=== PATIENT | female | born 1960 | race Caucasian/White ===

== ENCOUNTER 2021-09-21 06:51 | Emergency (ER) | payer OTHER, SELFPAY ==
--- NOTE | 2021-09-21 06:56 | ECG_ITS ---
[facility] Test Date: 2021-09-21 Pat Name: Naida Dallas Department: Room: Gender: Female Med Admin: : 1960 Requested By: Rakesh Clayton Order Number: [id number] Cristina MD: Zoltan Turcios M.D. Measurements Intervals Lambert Rate: 91 P: 67 NH: 168 QRS: 8 QRSD: 89 T: 72 QT: 360 QTc: 445 Interpretive Statements SINUS RHYTHM WITH SINUS ARRHYTHMIA POSSIBLE LEFT ATRIAL ENLARGEMENT [-0.1mV P-WAVE IN V1/V2] No previous ECG available for comparison Electronically Signed On 09-21-2021 22:33:46 CDT by Zoltan Turcios M.D. [id number]
--- NOTE | 2021-09-21 06:56 | ED_ITS ---
HPI - Abdominal Pain General: Chief Complaint: Abdominal Pain Stated Complaint: abdomen pain Time Seen by Provider: 09/21/21 06:52 Source: patient Mode of arrival: ambulatory Limitations: other (Intoxication) History of Present Illness: 61-year-old female who is acutely intoxicated. Patient admits to drinking alcohol almost continuously. She has been drinking for the last several days. She is a chronic alcoholic she is complaining of abdominal pain. She has difficulty swallowing states she is only been able to drink liquids the last couple of months. In the nurses note it states that the son reported she had a history of esophageal varices. When I talked to him and try to confirm this he was unaware what they were and states she is never had any episodes of upper GI bleeding or vomiting any bright red blood. She has had multiple esophageal strictures and food impactions and her last one was in around October 2019 at [place] she believes it was at [facility] where they pushed a food bolus of chicken meat into the stomach and did a dilation. Patient is obviously clinically significantly intoxicated she has emotional outbursts and severely labile moods. Patient admits to being intoxicated she denies any hematemesis or coffee-ground emesis in talking to her it does not sound like she has ever had any upper GI bleed or esophageal varices. She is not aware that she has any alcoholic liver cirrhosis. Family and the patient confirms she will drink a little bit more than a 1.75 L bottle in 2 days. MD elicited complaint: abdominal pain Pertinent past history: other (Alcoholism) Onset (ago): day(s) Location: Epigastric Severity: mild Quality: cramping Radiation: none Exacerbating factors: nothing Relieving factors: nothing Associated Symptoms: Reports bloating, GI cramping, nausea and poor appetite; Denies anorexia, belching, change in bowel habits, change in stool character, chills, coffee ground emesis, constipation, diarrhea, dyspepsia, dysuria, excessive flatus, fever(s), heartburn, hematochezia, hematuria, hematemesis, fecal incontinence, loose stools, melena, syncope and vomiting Review of Systems Const: Denies: fever(s) or chills ENMT: Denies: throat pain, ear or mastoid pain, nasal discharge or nasal congestion Card: Denies: chest pain, palpitations, irregular heart rhythm, edema or syncope Resp: Denies: dyspnea, productive cough or non-productive cough GI: Reports: abdominal pain, nausea, dysphagia, bloating and GI cramping; Denies: vomiting, hematemesis, coffee ground emesis, heartburn, diarrhea, constipation, belching, excessive flatus, fecal incontinence, change in bowel habits, change in stool character, hematochezia or melena : Denies: dysuria or hematuria Skin/Breast: Denies: rash or pruritus PFSH ED PFSH: Medical History Alcoholism Esophageal stricture GERD (gastroesophageal reflux disease) Surgical History History of cholecystectomy S/P appendectomy Physical Exam Const: GENERAL APPEARANCE: disheveled and appears older than stated age NUTRITIONAL APPEARANCE: cachectic ORIENTATION/CONSCIOUSNESS: Yes awake, Yes oriented to person, Yes oriented to place and Yes oriented to time HENMT: COMMON NORMALS: normocephalic, atraumatic, hearing grossly normal bilaterally, external ears normal, EAC's normal, TM's normal bilaterally, Normal nasal mucous membranes and turbinates present, moist oral mucous membranes and oropharynx normal HEAD & SCALP: normocephalic and atraumatic NOSE: Normal nasal mucous membranes and turbinates present EXTERNAL EAR: Yes external ears normal EXTERNAL AUDITORY CANAL: EAC's normal TYMPANIC MEMBRANE: TM's normal bilaterally Eye: COMMON NORMALS: Equal, round and reactive pupils present, EOMs intact bilaterally, conjunctivae normal and no scleral icterus CONJUNCTIVA: Yes conjunctivae normal PUPIL: Yes Equal, round and reactive pupils present Neck/C-Spine: COMMON NORMALS: no JVD Resp: COMMON NORMALS: normal respiratory effort, No retractions, No use of accessory muscles and clear to auscultation bilaterally AUSCULTATION: clear t o auscultation bilaterally Cardio: COMMON NORMALS: no JVD, regular rate, regular rhythm and No murmurs present (Cardio) RATE: regular rate RHYTHM: regular rhythm GI: COMMON NORMALS: Soft to palpation and No hepatosplenomegaly present AUSCULTATION: Yes normoactive bowel sounds PALPATION: Yes Soft to palpation, No Tenderness to palpation present (GI), No Guarding due to palpation present (GI) and Yes No hepatosplenomegaly present Extremity: COMMON NORMALS: normal to inspection, capillary refill normal, no clubbing, cyanosis or edema, no calf tenderness and no pedal edema Neuro: SENSORIUM/ORIENTATION: Yes oriented to person, Yes oriented to place and Yes oriented to time Skin: COMMON NORMALS: no rashes or lesions noted GENERAL SKIN EXAM: no rashes or lesions noted Course Vital Signs: Vital signs: Vital Signs Temperature 97.8 F 09/21/21 06:57 Pulse Rate 96 09/21/21 10:05 Respiratory Rate 16 09/21/21 10:05 Blood Pressure 103/58 09/21/21 10:05 Pulse Oximetry 96 09/21/21 10:05 MDM - Abdominal Pain Medical Decision Making No occlusion esophagus records from previous EGD make no mention of esophageal varices. Organ to go ahead and discharge patient home set up for outpatient EGD strongly encourage her to stop drinking. Medical Records I reviewed the patient's medical records. Lab Data I reviewed the patient's lab results. : 09/21/21 07:27 09/21/21 07:27 Labs/Radiology: Laboratory Results WBC 5.2 10^3/uL (4.0-10.0) 09/21/21 07:27 RBC 3.88 10^6/uL (4.1-5.3) L 09/21/21 07:27 Hgb 14.1 g/dL (11.5-15.3) 09/21/21 07:27 Hct 40.0 % (37.0-47.0) 09/21/21 07:27 MCV 103.1 fl (81-99) H 09/21/21 07:27 MCH 36.3 pg (28.0-34.0) H 09/21/21 07:27 MCHC 35.3 g/dL (30.0-36.0) 09/21/21 07:27 RDW 13.5 % (12.1-15.1) 09/21/21 07:27 Plt Count 131 10^3/cmm (130-400) 09/21/21 07:27 MPV 12.2 fL (7.4-10.4) H 09/21/21 07:27 Neut % (Auto) 52.5 % 09/21/21 07:27 Lymph % (Auto) 34.6 % 09/21/21 07:27 [place] % (Auto) 11.1 % 09/21/21 07:27 Eos % (Auto) 0.6 % 09/21/21 07:27 Baso % (Auto) 1.0 % 09/21/21 07:27 Neut # (Auto) 2.75 10^3/uL (1.8-7.7) 09/21/21 07:27 Lymph # (Auto) 1.8 10^3/uL (0.8-4.8) 09/21/21 07:27 [place] # (Auto) 0.6 10^3/uL (0.2-0.9) 09/21/21 07:27 Eos # (Auto) 0.0 10^3/uL (0.0-0.8) 09/21/21 07: Baso # (Auto) 0.1 10^3/uL (0.0-0.1) 09/21/21 07:27 Nucleated RBC % (auto) 0 % 09/21/21 07: Nucleated RBCs # 0.0 /100WBC 09/21/21 07:27 PT 13.90 SECONDS (12.1-14.9) 09/21/21 08:01 INR 1.04 (0.8-1.2) 09/21/21 08:01 APTT 28.7 SECONDS (23.9-36.7) 09/21/21 08:01 Sodium 141 mmol/L (136-145) 09/21/21 07:27 Potassium 3.6 mmol/L (3.5-5.1) 09/21/21 07:27 Chloride 97 mmol/L (98-107) L 09/21/21 07:27 Carbon Dioxide 24 mmol/L (22-29) 09/21/21 07:27 Anion Gap 23.6 (5-19) H 09/21/21 07:27 BUN 7 mg/dL (8-23) L 09/21/21 07:27 Creatinine 0.4 mg/dL (0.5-0.9) L 09/21/21 07:27 GFR Calculation 162.3 mL/min (90-130) H 09/21/21 07:27 Glucose 82 mg/dL (65-115) 09/21/21 07:27 Calculated Osmolality 289 mOsm/kg (285-295) 09/21/21 07:27 Calcium 9.4 mg/dL (8.5-10.5) 09/21/21 07:27 Total Bilirubin 0.9 mg/dL (0.15-1.2) 09/21/21 07:27 AST 428 U/L (0-32) H 09/21/21 07:27 ALT 185 U/L (0-33) H 09/21/21 07:27 Alkaline Phosphatase 158 IU/L (35-105) H 09/21/21 07:27 Ammonia 20 umol/L (11-51) 09/21/21 07:27 Total Protein 8.4 g/dL (6.6-8.7) 09/21/21 07:27 Albumin 4.8 g/dL (3.5-5.2) 09/21/21 07:27 Globulin 3.6 g/dL (1.3-4.6) 09/21/21 07:27 Lipase 24 U/L (13-60) 09/21/21 07:27 Urine Color Dark yellow (Yellow) 09/21/21 07:12 Urine Appearance Clear (CLEAR) 09/21/21 07:12 Urine pH 5 (5-7) 09/21/21 07:12 Ur Specific Show Low 1.015 (1.005-1.030) 09/21/21 07:12 Urine Protein 1+ (Negative) H 09/21/21 07:12 Urine Glucose (UA) Norm (Normal) 09/21/21 07:12 Urine Ketones 2+ (Negative) H 09/21/21 07:12 Urine Blood Neg (Negative) 09/21/21 07:12 Urine Nitrate Negative (Negative) 09/21/21 07:12 Urine Bilirubin Neg (Negative) 09/21/21 07:12 Urine Urobilinogen 8 mg/dL (Negative) H 09/21/21 07:12 Ur Leukocyte Esterase Trace (Negative) H 09/21/21 07:12 Urine RBC 0-4 /hpf (0-2) H 09/21/21 07:12 Urine WBC 0-4 /hpf (0-5) H 09/21/21 07:12 Ur Squamous Epith Cells 10-15 /hpf (0-5) H 09/21/21 07:12 Amorphous Sediment Not Reportable 09/21/21 07:12 Urine Bacteria 1+ /hpf (NONE) H 09/21/21 07:12 Hyaline Casts 0-4 /lpf H 09/21/21 07:12 Urine Mucus 2+ /hpf 09/21/21 07:12 Urine Opiates Screen Negative ng/mL (Negative) 09/21/21 07:12 Ur Barbiturates Screen Negative ng/mL (Negative) 09/21/21 07:12 Ur Phencyclidine Scrn Negative ng/mL (Negative) 09/21/21 07:12 Ur Amphetamines Screen Negative ng/mL (Negative) 09/21/21 07:12 U Benzodiazepines Scrn Negative ng/mL (Negative) 09/21/21 07:12 Urine Cocaine Screen Negative ng/mL (Negative) 09/21/21 07:12 U Marijuana (THC) Screen Negative ng/mL (Negative) 09/21/21 07:12 Ethyl Alcohol 271 mg/dL (0-10) H 09/21/21 07:27 Discharge Plan Discharge Patient Disposition: Home Clinical Impression: Dysphagia, Acute alcohol intoxication, Chronic gastroesophageal reflux disease Condition: Stable Prescriptions: New Protonix 40 mg tablet,delayed release (DR/EC) 40 mg PO DAILY 28 Days Qty: 30 0RF Discharge Orders: Discharge ED (Routine); Ordered 09/21/21 Ordered By: Rakesh Dumont Referrals: Reza Montana DO [Physician] - (EGD possible dilation) Discharge Diet: Full LIquid Discharge Activity: Increase activity as tolerated Patient Instructions: Opioid Safety Activity Restrictions/Additional Instructions: Abstain from alcohol. Coding Level of Care Code ED Merchandising Director for [employer] Fwd Exam Comprehensive
[2021-09-21 06:57] VITALS: BP 147/93; PULSE 162; RESP 22; TEMP 36.6; O2SAT 99; BMI 17.4
[2021-09-21 07:05] VITALS: BP 147/93; PULSE 116; RESP 18; O2SAT 98
[2021-09-21] MEDS: ondansetron 2 mg/ML SDV 2 mL 4 MG IVP ×2 (07:35→10:04)
[2021-09-21] MEDS: sodium chloride 0.9% 1,000 ML 999 ML IV (07:35)
[2021-09-21 07:42] LABS: Basophils # 0.1 10^3/uL (0.0-0.1); Eosinophils % 0.6 %; Hemoglobin 14.1 g/dL (11.5-15.3); Lymphocytes # 1.8 10^3/uL (0.8-4.8); Lymphocytes % 34.6 %; Mean Corpuscular HGB Conc 35.3 g/dL (30.0-36.0); Mean Corpuscular Hemoglobin 36.3 pg (28.0-34.0); Mean Corpuscular Volume 103.1 fl (81-99); Mean Platelet Volume 12.2 fL (7.4-10.4); Monocytes # 0.6 10^3/uL (0.2-0.9); Monocytes % 11.1 %; Neutrophils # 2.75 10^3/uL (1.8-7.7); Neutrophils % 52.5 %; Nucleated Red Blood Cells % 0 %; Platelet Count 131 10^3/cmm (130-400); Red Blood Count 3.88 10^6/uL (4.1-5.3); Red Cell Distribution Width 13.5 % (12.1-15.1); White Blood Count 5.2 10^3/uL (4.0-10.0)
[2021-09-21 07:50] VITALS: BP 124/84; PULSE 108; RESP 17; O2SAT 100
[2021-09-21 07:59] LABS: Amphetamines Screen Urine Negative (Negative); Barbiturates Screen Urine Negative (Negative); Benzodiazepines Screen Urine Negative (Negative); Cocaine Screen Urine Negative (Negative); Opiate Screen Urine Negative (Negative); PCP Screen Urine Negative (Negative); THC Screen Urine Negative (Negative)
[2021-09-21 08:03] LABS: Ammonia 20 umol/L (11-51)
[2021-09-21 08:04] LABS: Alanine Aminotransferase 185 U/L (0-33); Albumin Level 4.8 g/dL (3.5-5.2); Alcohol Level 271 mg/dL (0-10); Alkaline Phosphatase 158 IU/L (35-105); Anion Gap 23.6 (5-19); Blood Urea Nitrogen 7 mg/dL (8-23); Calcium 9.4 mg/dL (8.5-10.5); Carbon Dioxide 24 mmol/L (22-29); Chloride 97 mmol/L (98-107); Globulin 3.6 g/dL (1.3-4.6); Glomerular Filtration Rate 162.3 mL/min (90-130); Glucose 82 mg/dL (65-115); Lipase 24 U/L (13-60); Osmolality Calculated 289 mOsm/kg (285-295); Potassium 3.6 mmol/L (3.5-5.1); Sodium 141 mmol/L (136-145); Total Bilirubin 0.9 mg/dL (0.15-1.2); Total Protein 8.4 g/dL (6.6-8.7)
[2021-09-21 08:05] LABS: Aspartate Amino Transferase 428 U/L (0-32)
[2021-09-21 08:07] LABS: Specific Gravity, Urine 1.015 (1.005-1.030); Urine Appearance Clear (CLEAR); Urine Color Dark Yellow (Yellow); pH Urine 5 (5-7)
[2021-09-21 08:08] LABS: Add Urine Microscopic? YES; Bacteria Urine 1+ /hpf; Bilirubin Urine Neg (Negative); Blood Urine Neg (Negative); Glucose Urine UA Norm (Normal); Hyaline Casts Urine 0-4 /lpf; Ketones Urine 2+ (Negative); Leukocyte Esterase Urine Trace (Negative); Mucus Urine 2+ /hpf; Nitrate Urine Negative (Negative); Protein Urine 1+ (Negative); RBC Urine 0-4 /hpf (0-2); Urobilinogen Urine 8 mg/dL (Negative); WBC Urine 0-4 /hpf (0-5)
[2021-09-21 08:17] LABS: INR 1.04 (0.8-1.2)
[2021-09-21 08:18] LABS: Partial Thromboplastin Time 28.7 SECONDS (23.9-36.7)
[2021-09-21] MEDS: pantoprazole 40 mg SDV 80 MG IVP (10:04)
[2021-09-21] MEDS: LORazepam 2 mg/mL INJ 1 mL 1 MG IVP (10:04)
[2021-09-21 10:05] VITALS: BP 103/58; PULSE 96; RESP 16; O2SAT 96
== END 2021-09-21 10:11 | disposition home or self-care (01) ==
PROVIDERS: Emergency Provider Family Medicine; PCP Physician Assistant
DX: F10.229 Alcohol dependence with intoxication, unspecified (principal); Y90.8 Blood alcohol level of 240 mg/100 ml or more; K21.9 Gastro-esophageal reflux disease without esophagitis; R13.10 Dysphagia, unspecified; R11.0 Nausea
CPT/HCPCS: 80053; 80306; 80307; 81001; 82140; 83690; 85025; 85610; 85730; 93005; 96361; 96374; 96375; 96376; 99284; C9113; J2060; J2405; J7030

== ENCOUNTER 2021-10-02 02:24 | Inpatient (IN) | payer OTHER, SELFPAY ==
[2021-10-02 02:36] VITALS: BP 114/73; PULSE 114; RESP 18; TEMP 36.3; O2SAT 98; BMI 17.4
--- NOTE | 2021-10-02 03:04 | ED.C_ITS ---
HPI - Psych General: Chief Complaint: Psychiatric Symptoms Stated Complaint: Si Time Seen by Provider: 10/02/21 02:27 Source: patient and family Mode of arrival: ambulatory Limitations: no limitations History of Present Illness: 61-year-old female has a history of chronic alcoholism who is here for suicidality. Patient states that she cannot stop drinking and she is no longer feels like living anymore. She has made statements to her that she has been to get a gun and shoot herself and shoot him. She tells me that she just no longer has any will to live anymore. She denies any worsening improving factors. Associated symptoms: Reports depression and suicidal ideation Review of Systems Const: Denies: fever(s), chills, body aches or change in appetite Eyes: Denies: blurry vision or eye discomfort ENMT: Denies: throat pain or dental pain Card: Denies: chest pain Resp: Denies: dyspnea GI: Denies: abdominal pain, nausea, vomiting or diarrhea : Denies: dysuria Musc: Denies: neck pain or back pain Skin/Breast: Denies: rash Neuro: Denies: headache(s) Psych: Reports: depression and suicidal ideation Juanito/Lymph: Denies: easy bruising All/Imm: Denies: urticaria PFSH ED PFSH: Medical History Alcoholism Esophageal stricture GERD (gastroesophageal reflux disease) Surgical History History of cholecystectomy S/P appendectomy Social History (Updated 10/02/21 @ 03:05 by Eric Parker MD) Alcohol intake: current Physical Exam Const: COMMON NORMALS: patient oriented x3 GENERAL APPEARANCE: odor of alcohol detected HENMT: COMMON NORMALS: normocephalic and atraumatic HEAD & SCALP: normocep halic and atraumatic Eye: COMMON NORMALS: conjunctivae normal CONJUNCTIVA: Yes conjunctivae normal Neck/C-Spine: COMMON NORMALS: full ROM Chest: COMMONS NORMALS: normal inspection of the chest Resp: COMMON NORMALS: normal respiratory effort Cardio: COMMON NORMALS: regular rate RATE: regular rate GI: INSPECTION: Yes normal to inspection Extremity: COMMON NORMALS: normal to inspection Neuro: COMMON NORMALS: patient oriented x3 Psych: COMMON NORMALS: mental status grossly normal MOOD & AFFECT: Yes depressed mood THOUGHT CONTENT: Yes Suicidality present and Yes Homicidality present Skin: COMMON NORMALS: no rashes or lesions noted GENERAL SKIN EXAM: no rashes or lesions noted Course Vital Signs: Vital signs: Vital Signs Temperature 97.3 F L 10/02/21 02:36 Pulse Rate 114 H 10/02/21 02:36 Respiratory Rate 18 10/02/21 02:36 Blood Pressure 114/73 10/02/21 02:36 Pulse Oximetry 98 10/02/21 02:36 MDM - Psych Medical Decision Making Patient presents with suicidality along with alcoholism. Patient's medically cleared given a band and back down in the ER. Spoke to psychiatrist and will admit under 96-hour hold. Lab Data : 10/02/21 03:07 10/02/21 03:07 Laboratory Results WBC 7.0 10^3/uL (4.0-10.0) 10/02/21 03:07 RBC 3.48 10^6/uL (4.1-5.3) L 10/02/21 03:07 Hgb 12.4 g/dL (11.5-15.3) 10/02/21 03:07 Hct 35.1 % (37.0-47.0) L 10/02/21 03:07 MCV 100.9 fl (81-99) H 10/02/21 03:07 MCH 35.6 pg (28.0-34.0) H 10/02/21 03:07 MCHC 35.3 g/dL (30.0-36.0) 10/02/21 03:07 RDW 13.1 % (12.1-15.1) 10/02/21 03:07 Plt Count 102 10^3/cmm (130-400) L 10/02/21 03:07 MPV 11.8 fL (7.4-10.4) H 10/02/21 03:07 Neut % (Auto) 81.1 % 10/02/21 03:07 Lymph % (Auto) 10.1 % 10/02/21 03:07 [place] % (Auto) 7.8 % 10/02/21 03:07 Eos % (Auto) 0.0 % 10/02/21 03:07 Baso % (Auto) 0.9 % 10/02/21 03:07 Neut # (Auto) 5.64 10^3/uL (1.8-7.7) 10/02/21 03:07 Lymph # (Auto) 0.7 10^3/uL (0.8-4.8) L 10/02/21 03:07 [place] # (Auto) 0.5 10^3/uL (0.2-0.9) 10/02/21 03:07 Eos # (Auto) 0.0 10^3/uL (0.0-0.8) 10/02/21 03:07 Baso # (Auto) 0.1 10^3/uL (0.0-0.1) 10/02/21 03:07 Nucleated RBC % (auto) 0 % 10/02/21 03:07 Nucleated RBCs # 0.0 /100WBC 10/02/21 03:07 Sodium 137 mmol/L (136-145) 10/02/21 03:07 Potassium 3.4 mmol/L (3.5-5.1) L 10/02/21 03:07 Chloride 93 mmol/L (98-107) L 10/02/21 03:07 Carbon Dioxide 21 mmol/L (22-29) L 10/02/21 03:07 Anion Gap 26.4 (5-19) H 10/02/21 03:07 BUN 7 mg/dL (8-23) L 10/02/21 03:07 Creatinine 0.4 mg/dL (0.5-0.9) L 10/02/21 03:07 GFR Calculation 162.3 mL/min (90-130) H 10/02/21 03:07 Glucose 87 mg/dL (65-115) 10/02/21 03:07 Calculated Osmolality 281 mOsm/kg (285-295) L 10/02/21 03:07 Calcium 8.9 mg/dL (8.5-10.5) 10/02/21 03:07 Total Bilirubin 1.3 mg/dL (0.15-1.2) H 10/02/21 03:07 AST 188 U/L (0-32) H 10/02/21 03:07 ALT 71 U/L (0-33) H 10/02/21 03:07 Alkaline Phosphatase 170 IU/L (35-105) H 10/02/21 03:07 Total Protein 7.4 g/dL (6.6-8.7) 10/02/21 03:07 Albumin 4.5 g/dL (3.5-5.2) 10/02/21 03:07 Globulin 2.9 g/dL (1.3-4.6) 10/02/21 03:07 Lipase 40 U/L (13-60) 10/02/21 03:07 Salicylates < 0.3 mg/dL (3-10) L 10/02/21 03:07 Urine Opiates Screen Negative ng/mL (Negative) 10/02/21 03:00 Acetaminophen < 5.0 ug/mL (10-30) L 10/02/21 03:07 Ur Barbiturates Screen Negative ng/mL (Negative) 10/02/21 03:00 Ur Phencyclidine Scrn Negative ng/mL (Negative) 10/02/21 03:00 Ur Amphetamines Screen Negative ng/mL (Negative) 10/02/21 03:00 U Benzodiazepines Scrn Negative ng/mL (Negative) 10/02/21 03:00 Urine Cocaine Screen Negative ng/mL (Negative) 10/02/21 03:00 U Marijuana (THC) Screen Negative ng/mL (Negative) 10/02/21 03:00 Ethyl Alcohol 129 mg/dL (0-10) H 10/02/21 03:07 Discharge Plan Discharge Patient Disposition: Admitted As Inpatient Clinical Impression: Suicidal ideation, Alcoholism Prescriptions: No Action Protonix 40 mg tablet,delayed release (DR/EC) 40 mg PO DAILY 28 Days Qty: 30 0RF Referrals: Helene Moncada PA [Primary Care Provider] - Coding Level of Care Code ED Wrestling Coach for [facility] Fwd Exam Comprehensive
[2021-10-02 03:23] LABS: Basophils # 0.1 10^3/uL (0.0-0.1); Basophils % 0.9 %; Hematocrit 35.1 % (37.0-47.0); Hemoglobin 12.4 g/dL (11.5-15.3); Lymphocytes # 0.7 10^3/uL (0.8-4.8); Lymphocytes % 10.1 %; Mean Corpuscular HGB Conc 35.3 g/dL (30.0-36.0); Mean Corpuscular Hemoglobin 35.6 pg (28.0-34.0); Mean Corpuscular Volume 100.9 fl (81-99); Mean Platelet Volume 11.8 fL (7.4-10.4); Monocytes # 0.5 10^3/uL (0.2-0.9); Monocytes % 7.8 %; Neutrophils # 5.64 10^3/uL (1.8-7.7); Neutrophils % 81.1 %; Nucleated Red Blood Cells % 0 %; Platelet Count 102 10^3/cmm (130-400); Red Blood Count 3.48 10^6/uL (4.1-5.3); Red Cell Distribution Width 13.1 % (12.1-15.1)
[2021-10-02 03:34] LABS: Amphetamines Screen Urine Negative (Negative); Barbiturates Screen Urine Negative (Negative); Benzodiazepines Screen Urine Negative (Negative); Cocaine Screen Urine Negative (Negative); Opiate Screen Urine Negative (Negative); PCP Screen Urine Negative (Negative); THC Screen Urine Negative (Negative)
[2021-10-02 03:42] LABS: Alanine Aminotransferase 71 U/L (0-33); Albumin Level 4.5 g/dL (3.5-5.2); Alcohol Level 129 mg/dL (0-10); Alkaline Phosphatase 170 IU/L (35-105); Anion Gap 26.4 (5-19); Aspartate Amino Transferase 188 U/L (0-32); Blood Urea Nitrogen 7 mg/dL (8-23); Calcium 8.9 mg/dL (8.5-10.5); Carbon Dioxide 21 mmol/L (22-29); Chloride 93 mmol/L (98-107); Globulin 2.9 g/dL (1.3-4.6); Glomerular Filtration Rate 162.3 mL/min (90-130); Glucose 87 mg/dL (65-115); Lipase 40 U/L (13-60); Osmolality Calculated 281 mOsm/kg (285-295); Potassium 3.4 mmol/L (3.5-5.1); Sodium 137 mmol/L (136-145); Total Bilirubin 1.3 mg/dL (0.15-1.2); Total Protein 7.4 g/dL (6.6-8.7)
[2021-10-02 03:43] LABS: Acetaminophen < 5.0 ug/mL (10-30); Salicylate < 0.3 mg/dL (3-10)
[2021-10-02] MEDS: ondansetron 2 mg/ML SDV 2 mL 4 MG IVP (04:12)
[2021-10-02] MEDS: morphine 4 mg/mL SDV 1 mL IVP (04:12)
[2021-10-02] MEDS: folic acid 1 MG, multivitamin inj 10 ML, thiamine 100 MG in sodium chloride 0.9% 1,000 ML 252.8 MG IV (04:25)
[2021-10-02 07:04] VITALS: BP 111/60; PULSE 91; RESP 18; O2SAT 99
--- NOTE | 2021-10-02 07:17 | PC.PHAR ---
pt states she takes no rx medications-ext med history shows no medications-rx written on 09/21/21 for protonix 40mg daily pt states she didnt fill rx-pt states its hard for her to swallow pills
[2021-10-02 09:02] VITALS: BP 115/77; PULSE 89; RESP 20; TEMP 36.8; O2SAT 97
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
[2021-10-02] MEDS: OLANZapine 5 mg ODT 2.5 MG PO ×2 (12:15→18:18)
[2021-10-02 14:00] VITALS: BP 110/66; PULSE 82; RESP 20; TEMP 36.8; O2SAT 99
[2021-10-02] MEDS: lactulose oral liq 20 gm/30 mL UDC PO (15:17)
[2021-10-02 20:30] VITALS: BP 122/65; PULSE 73; RESP 18; TEMP 36.9; O2SAT 100
[2021-10-03 06:00] VITALS: BP 107/70; PULSE 78; RESP 18; TEMP 36.8; O2SAT 99
[2021-10-03] MEDS: OLANZapine 5 mg ODT 2.5 MG PO ×2 (09:58→18:11)
[2021-10-03] MEDS: folic acid 1 mg Tablet PO (09:58)
[2021-10-03] MEDS: multivitamin therapeutic Tablet 1 TAB PO (09:58)
[2021-10-03] MEDS: thiamine 100 mg Tablet PO (09:58)
[2021-10-03 14:00] VITALS: BP 109/70; PULSE 74; RESP 16; TEMP 36.4; O2SAT 99
--- NOTE | 2021-10-03 15:48 | P.NPUPN_ITS ---
Subjective NPU Subjective: Patient presents today feeling fairly elaborate stories about her is some of their not [place] fights. She denies any need for her to be in the hospital other than maybe exploring a repeat esophageal expansion. Very much downplaying the role of alcohol in her situation though she was intoxicated in both her recent presentations to [facility]. We we will continue to explore collateral information but that concerns are significant that the biggest thing necessary is her identifying and facing the role of addiction in her circumstances. She reports that statements about her making suicidal and or homicidal statements were taken clearly out of context. Mental Status Exam MSE Comments: This is an underweight white female looking older than her stated age in hospital scrubs with adequate grooming and eye contact. No abnormal movements. Cooperative with exam in no acute distress. Speech was normal rate and volume. Mood described as I am fine, affect congruent. Thought p rocess organized, thought content: patient denies suicidal or homicidal ideation, there were no delusions reported or noted, she denied any auditory or visual hallucinations. Attention and concentration were intact and memory appeared reliable but none were formally tested. She?s alert and oriented times three. Insight and judgment appeared fair and impulse control appeared fair Vitals/I&O/Wt Last Vital Signs Temp 97.6 F 10/03/21 14:00 Pulse 74 10/03/21 14:00 Resp 16 10/03/21 14:00 BP 109/70 10/03/21 14:00 Pulse Ox 99 10/03/21 14:00 Weight last 48 hrs Weight 43.091 kg Data NPU : 10/02/21 03:07 10/02/21 03:07 A&P Assessment and plan (1) Major depressive disorder: Status: Acute (2) Alcoholism: Status: Acute (3) Anxiety: Status: Acute (4) Marital/partner relational problem: Status: Acute (5) Suicidal ideation: Status: Acute (6) GERD (gastroesophageal reflux disease): Status: Acute Plan This is a 61-year-old lady with alcoholism and severe esophageal stricture who has given up on living. Plan: 1.? [facility] protocol for alcohol withdrawal using IM Ativan.? Zyprexa Zydis 2.5 mg twice a day to try to stimulate her appetite. 2.? Continue every 15 minute checks for safety. 3.? Encourage individual, group and milieu therapies. 4.? Encourage sober living treatment after discharge at the highest level of care to which she is willing to commit. 5.? We will monitor for safety for herself in the community prior to discharge. Involuntary Hold Information 96 Hour Hold: 96 Hour Involuntary Admission: Yes 96 Hour Hold Ending Date: 10/08/21 96 Hour Hold Ending Time: 08:39 Attestations NPU Medical Necessity Statement*: Inpatient hospitalization is medically necessary and the clinically appropriate intervention at this time.? We will initiate medications and make changes as indicated.? Likely length of stay 3-5 days Coding Level of Care Code Acute Health Care Sanitary Technician for Chg Fwd Diagnoses Major depressive disorder F32.9 Alcoholism F10.20 Anxiety F41.9 Marital/partner relational problem Z63.0 Suicidal ideation R45.851 GERD (gastroesophageal reflux disease) K21.9
[2021-10-03 21:15] VITALS: BP 114/70; PULSE 96; RESP 16; TEMP 36.8; O2SAT 97
[2021-10-03] MEDS: trazodone 50 mg Tablet PO (22:18)
--- NOTE | 2021-10-03 22:18 | PC.NURSE ---
PT REQUESTED MEDICATION TO HELP HER SLEEP. TRAZADONE WAS GIVEN.
[2021-10-04 06:00] VITALS: BP 103/69; PULSE 98; RESP 16; TEMP 36.6; O2SAT 99
[2021-10-04] MEDS: OLANZapine 5 mg ODT 2.5 MG PO ×2 (08:04→17:13)
[2021-10-04 14:00] VITALS: BP 111/77; PULSE 101; RESP 17; TEMP 36.7; O2SAT 97
--- NOTE | 2021-10-04 16:00 | P.NPUPN_ITS ---
Subjective NPU Subjective: Patient presents today continuing to report that she feels are the reason why she is here is related to misunderstanding with her . He presented today and she reports that it was a reasonable visit that he knows how to act around people. She continues to have limited intake and we d iscussed getting a consult with the hospitalist to look at the issue surrounding her esophageal constriction and previous stretches. She was informed that I will take place in the morning. We will work with treatment team and to explore safe discharge. Mental Status Exam MSE Comments: This is an underweight white female looking older than her stated age in hospital scrubs with adequate grooming and eye contact. No abnormal movements.? Cooperative with exam in no acute distress. Speech was n ormal rate and volume. Mood described as I am not sure whether supposed to be here or not but I am feeling a little better affect congruent. Thought process organized, thought content: patient denies suicidal or homicidal ideation, there were no delusions reported or noted, she denied any auditory or visual hallucinations. Attention and concentration were intact and memory appeared reliable but none were formally tested. She?s alert and oriented times three. Insight and judgment appeared fair and impulse control appeared fair Vitals/I&O/Wt Last Vital Signs Temp 98.0 F 10/04/21 14:00 Pulse 101 H 10/04/21 14:00 Resp 17 10/04/21 14:00 BP 111/77 10/04/21 14:00 Pulse Ox 97 10/04/21 14:00 Data NPU : 10/02/21 03:07 10/02/21 03:07 A&P Assessment and plan (1) Major depressive disorder: Status: Acute (2) Anxiety: Status: Acute (3) Marital/partner relational problem: Status: Acute (4) Suicidal ideation: Status: Acute (5) GERD (gastroesophageal reflux disease): Status: Acute (6) Alcohol use disorder, severe, dependence: Status: Acute Plan This is a 61-year-old lady with alcoholism and severe esophageal stricture who has given up on living. Plan: 1.? [place] protocol for alcohol withdrawal using IM Ativan.? Zyprexa Zydis 2.5 mg twice a day to try to stimulate her appetite. 2.? Continue every 15 minute checks for safety. 3.? Encourage individual, group and milieu therapies. 4.? Encourage sober living treatment after discharge at the highest level of care to which she is willing to commit. 5.? We will monitor for safety for herself in the community prior to discharge. Involuntary Hold Information 96 Hour Hold: 96 Hour Involuntary Admission: Yes 96 Hour Hold Ending Date: 10/08/21 96 Hour Hold Ending Time: 08:39 Attestations NPU Medical Necessity Statement*: Inpatient hospitalization is medically necessary and the clinically appropriate intervention at this time.? We will initiate medications and make changes as indicated.?? Likely length of stay 2-4 days Coding Level of Care Code Acute Dragline Engineer for Chg Fwd Diagnoses Major depressive disorder F32.9 Anxiety F41.9 Marital/partner relational problem Z63.0 Suicidal ideation R45.851 GERD (gastroesophageal reflux disease) K21.9 Alcohol use disorder, severe, dependence F10.20
[2021-10-04 20:42] VITALS: BP 113/71; PULSE 95; RESP 17; TEMP 36.6; O2SAT 100
--- NOTE | 2021-10-04 21:02 | PC.NURSE ---
PRN PT REQUESTED SOMETHING FOR ANXIETY. HYDROXYZINE WAS GIVEN. PT RETURNED TO DAY ROOM WITH PEERS
[2021-10-04] MEDS: trazodone 50 mg Tablet PO (21:31)
[2021-10-05 06:00] VITALS: BP 110/68; PULSE 100; RESP 17; TEMP 36.8; O2SAT 98
[2021-10-05] MEDS: OLANZapine 5 mg ODT 2.5 MG PO ×2 (08:29→16:28)
[2021-10-05] MEDS: folic acid 1 mg Tablet PO (08:29)
[2021-10-05] MEDS: thiamine 100 mg Tablet PO (08:29)
[2021-10-05] MEDS: multivitamin therapeutic Tablet 1 TAB PO (08:29)
--- NOTE | 2021-10-05 10:16 | FL_ITS ---
WS: [id number] Barium swallow and esophagram, 10/05/2021 Clinical Data: esophageal stricture, vomiting. Comparison: None. Fluoroscopy time: 0min [id number] # of spot films: 5 Findings: The patient swallowed the thick and thin barium, and it flowed through the hypopharynx without hesita tion. No stricture, mass, polyp or erosion was seen in the hypopharynx. The barium entered the esophagus. The barium passed to the distal esophagus by gravity without normal peristalsis. There was a stricture at the gastroesophageal junction. Only a small amount of barium p assed into the stomach even though the patient was in the erect position. FL/FL barium swallow [id number] Impression: 1. Probable benign stricture at the gastroesophageal junction permitting only m inimal flow of barium into the stomach. 2. Absent peristalsis of the esophagus.
--- NOTE | 2021-10-05 13:17 | PC.NURSE ---
RETURNED FROM BARIUM SWALLOW TEST. TOLERATED WELL. BACK ON UNIT AT 1316.
[2021-10-05 14:00] VITALS: BP 109/51; PULSE 100; RESP 20; TEMP 37.1; O2SAT 100
--- NOTE | 2021-10-05 16:00 | P.CONIM_ITS ---
Providers/Reason For Consult Consulting Physician/Specialty*: hosp Reason for Consult*: odynophagia Attending Physician: Jose Alfredo Garcia MD Primary Care Provider: Helene Moncada History of Present Illness History of Present Illness Naida Dallas is a 61 year old female who has a history of esophageal stricture status post balloon dilation by Dr. Wray in the past. Hospital service was requested to evaluate her for odynophagia. I requested upper GI series which showed benign esophageal stricture, I de-escalated her diet to liquid. Patient is stating that she would like to see Dr. Wray. Review of Systems Const: Denies: fever(s) Eyes: Denies: change in vision ENMT: Denies: throat pain Card: Denies: chest pain Resp: Denies: dyspnea GI: Denies: abdominal pain : Denies: flank pain Musc: Denies: neck pain Skin/Breast: Denies: rash Neuro: Denies: headache(s) Psych: Denies: anxiety Endo: Denies: polyuria Juanito/Lymph: Denies: easy bruising All/Imm: Denies: urticaria Medications/Allergies Home Medications Medication Instructions Recorded Confirmed Last Taken Type aspirin 81 mg tablet,delayed 81 - 162 mg PO DAILY PRN 10/02/21 10/02/21 Unknown History release Allergies Allergy/AdvReac Type Severity Reaction Status Date / Time No Known Allergies Allergy Verified 10/02/21 07:16 Current Medications Generic Name Dose Route Start Last Admin Trade Name Freq PRN Reason Stop Dose Admin Folic Acid 1 mg 10/03/21 09:00 10/05/21 08:29 Folic Acid 1 Mg Tablet PO 1 mg DAILY RELL Administration Lactulose 20 gm 10/02/21 14:30 10/02/21 15:17 Lactulose Oral Liq 20 Gm/30 Ml Udc PO 20 gm Q12H RELL Administration Multivitamins Therapeutic 1 tab 10/03/21 09:00 10/05/21 08:29 Multivitamin Therapeutic Tablet PO 1 tab DAILY RELL Administration Olanzapine 2.5 mg 10/02/21 11:55 10/05/21 08:29 Olanzapine 5 Mg Odt PO 2.5 mg BID RELL Administration Thiamine Mononitrate 100 mg 10/03/21 09:00 10/05/21 08:29 Thiamine 100 Mg Tablet PO 100 mg DAILY RELL Administration PFSH Acute PFSH: Medical History Alcoholism Esophageal stricture GERD (gastroesophageal reflux disease) Surgical History History of cholecystectomy S/P appendectomy Social History Alcohol intake: current Vitals/I&O/Wt Last Vital Signs Temp 98.8 F 10/05/21 14:00 Pulse 100 10/05/21 14:00 Resp 20 H 10/05/21 14:00 BP 109/51 10/05/21 14:00 Pulse Ox 100 10/05/21 14:00 Physical Exam Narrative: Patient was laying supinecomfortably in her bed Euvolemic Nonfocal neuro exam Satting well on room air Abdomen is soft No audible stridor or wheezing Data : 10/02/21 03:07 10/02/21 03:07 A&P Assessment and plan (1) GERD (gastroesophageal reflux disease): Status: Acute (2) Esophageal stricture: Status: Acute Plan Odynophagia with esophageal stricture She might need esophageal balloon dilation versus stent,patient is asking to see Dr. Wray, Please consult general surgery for further assistance, Upper GI series did show benign esophageal stricture At this point I would only change her diet to liquid consistency Dr. Montana is occupational health nurse today, please touch base with Dr. Wray to see if this can be done outpatient Consult Attestations Medical Necessity Statement: As per Dr. Smith Time Spent in Patient Care: 30 Coding Level of Care Code Acute Customer Contact Representative for Chg Fwd Diagnoses GERD (gastroesophageal reflux disease) K21.9 Esophageal stricture K22.2
--- NOTE | 2021-10-05 16:44 | W.PM.NPUPNS ---
Subjective NPU Subjective: Patient resents today reporting that she is feeling a little better. She reports that she is working with the hospitalist on ways they can manage her situation of her esophagus better. She reports that she has been talking to her but she is not sure if she can go back there and feel that she will be safe. Otherwise she feels like she is doing okay denies any need for any changes and reports she is sleeping better but eating is still a problem. Mental Status Exam MSE Comments: This is an underweight white female looking older than her stated age in hospital scrubs with adequate grooming and eye contact. No abnormal movements.? Cooperative with exam in no acute distress. Speech was normal rate and volume. Mood described as I am okay I guess, affect congruent. Thought process organized, thought content: patient denies suicidal or homicidal ideation, there were no delusions reported or noted, she denied any auditory or visual hallucinations. Attention and concentration were intact and memory appeared reliable but none were formally tested. She?s alert and oriented times three. Insight and judgment appeared fair and impulse control appeared fair Vitals/I&O/Wt Last Vital Signs Temp 98.8 F 10/05/21 14:00 Pulse 100 10/05/21 19:54 Resp 16 10/05/21 19:54 BP 115/64 10/05/21 19:54 Pulse Ox 98 10/05/21 19:54 Data NPU : 10/02/21 03:07 10/02/21 03:07 A&P Assessment and plan (1) Alcohol use disorder, severe, dependence: Status: Acute (2) Major depressive disorder: Status: Acute (3) Anxiety: Status: Acute (4) Marital/partner relational problem: Status: Acute (5) Suicidal ideation: Status: Acute (6) GERD (gastroesophageal reflux disease): Status: Acute Plan This is a 61-year-old lady with alcoholism and severe esophageal stricture who has given up on living. Plan: 1.? [facility] protocol for alcohol withdrawal using IM Ativan.? Zyprexa Zydis 2.5 mg twice a day to try to stimulate her appetite. 2.? Continue every 15 minute checks for safety. 3.? Encourage individual, group and milieu therapies. 4.? Encourage sober living treatment after discharge at the highest level of care to which she is willing to commit. 5.? We will monitor for safety for herself in the community prior to discharge. Involuntary Hold Information 96 Hour Hold: 96 Hour Involuntary Admission: Yes 96 Hour Hold Ending Date: 10/08/21 96 Hour Hold Ending Time: 08:39 Attestations NPU Medical Necessity Statement*: npatient hospitalization is medically necessary and the clinically appropriate intervention at this time.? We will initiate medications and make changes as indicated.?? Likely length of stay 1-3 days Coding Level of Care Code Acute Classroom Coordinator for [facility] Fwd Diagnoses Alcohol use disorder, severe, dependence F10.20 Major depressive disorder F32.9 Anxiety F41.9 Marital/partner relational problem Z63.0 Suicidal ideation R45.851 GERD (gastroesophageal reflux disease) K21.9
[2021-10-05 19:54] VITALS: BP 115/64; PULSE 100; RESP 16; O2SAT 98
[2021-10-05] MEDS: OLANZapine 5 mg ODT PO (20:41)
[2021-10-06 06:00] VITALS: BP 103/61; PULSE 81; RESP 16; TEMP 36.4; O2SAT 98
[2021-10-06] MEDS: OLANZapine 5 mg ODT 2.5 MG PO ×2 (08:23→17:25)
--- NOTE | 2021-10-06 09:00 | PC.NURSE ---
IN ROOM STATES I TRIED TO EAT AND JUST THREW IT UP. EDUCATED THAT PT WAS ON A LIQUID DIET. PT STATES, I KNOW BUT I NEED TO EAT SOMETHING. PT ANXIOUS AND TEARFUL WITH ASSESSMENT DUE TO SITUATION AT HOME AND NOT BEING ABLE TO EAT WITHOUT HAVING PAIN. MED NURSE TO ADMINISTER ZYDIS ORDERED DUE TO PT STATING I CAN ONLY HAVE THE MED THAT MELTS IN MY MOUTH CAUSE ITS TO PAINFUL TO SWALLOW AND I'LL THROW IT UP. VERBALLY DEESCALATED PT. ALL QUESTIONS AND SUPPORT VOICED.
--- NOTE | 2021-10-06 13:19 | W.PM.NPUPNS ---
Subjective NPU Subjective: Patient presents today reporting appreciation for the hospitalist coming by evaluating her but reports he identifies that she is at the same space that she ends up at which is that she needs to have a surgeon to treat a situation for her to have normal or near normal eating. She reports that there was discussion about pur?e and she got fairly upset talking about how long she is and having pur?e be the answer for the rest of her life. We discussed that the recommendation for pur?e is a temporary intervention while evaluate the surgical fix. She reports otherwise she is feeling weak because she has not eaten much. Mental Status Exam MSE Comments: This is an underweight white female looking older than her stated age in hospital scrubs with adequate grooming and eye contact. No abnormal movements.? Cooperative with exam in no acute distress. Speech was normal rate and volume. Mood described as frustrated, affect congruent. Thought process organized, thought content: patient denies suicidal or homicidal ideation, there were no delusions reported or noted, she denied any auditory or visual hallucinations. Attention and concentration were intact and memory appeared reliable but none were formally tested. She?s alert and oriented times three. Insight and judgment appeared fair and impulse control appeared fair Vitals/I&O/Wt Last Vital Signs Temp 97.6 F 10/06/21 06:00 Pulse 81 10/06/21 06:00 Resp 16 10/06/21 06:00 BP 103/61 10/06/21 06:00 Pulse Ox 98 10/06/21 06:00 Data NPU : 10/02/21 03:07 10/02/21 03:07 A&P Assessment and plan (1) Esophageal stricture: Status: Acute (2) Alcohol use disorder, severe, dependence: Status: Acute (3) Major depressive disorder: Status: Acute (4) Anxiety: Status: Acute (5) Marital/partner relational problem: Status: Acute (6) Suicidal ideation: Status: Acute (7) GERD (gastroesophageal reflux disease): Status: Acute Plan This is a 61-year-old lady with alcoholism and severe esophageal stricture who has given up on living. Plan: 1.? [place] protocol for alcohol withdrawal using IM Ativan.? Zyprexa Zydis 2.5 mg twice a day to try to stimulate her appetite. 2.? Continue every 15 minute checks for safety. 3.? Encourage individual, group and milieu therapies. 4.? Encourage sober living treatment after discharge at the highest level of care to which she is willing to commit. 5.? We will monitor for safety for herself in the community prior to discharge. Involuntary Hold Information 96 Hour Hold: 96 Hour Involuntary Admission: Yes 96 Hour Hold Ending Date: 10/08/21 96 Hour Hold Ending Time: 08:39 Attestations NPU Medical Necessity Statement*: Inpatient hospitalization is medically necessary and the clinically appropriate intervention at this time.? We will initiate medications and make changes as indicated.?? Likely length of stay 2-3 days Coding Level of Care Code Acute Family Practice Medical Doctor for g Fwd Diagnoses Esophageal stricture K22.2 Alcohol use disorder, severe, dependence F10.20 Major depressive disorder F32.9 Anxiety F41.9 Marital/partner relational problem Z63.0 Suicidal ideation R45.851 GERD (gastroesophageal reflux disease) K21.9
[2021-10-06 13:41] VITALS: BP 97/64; PULSE 89; RESP 17; TEMP 36.6; O2SAT 99
[2021-10-06] MEDS: blistex lip oint 7 gm Tube 1 APPLIC TOPICAL (17:26)
[2021-10-06 19:43] VITALS: BP 119/79; PULSE 93; RESP 18; TEMP 37.7; O2SAT 100
[2021-10-06] MEDS: OLANZapine 5 mg ODT PO (20:58)
[2021-10-07 06:00] VITALS: BP 104/67; PULSE 90; RESP 16; TEMP 36.9; O2SAT 99
[2021-10-07] MEDS: OLANZapine 5 mg ODT 2.5 MG PO ×2 (09:01→17:57)
[2021-10-07] MEDS: folic acid 1 mg Tablet PO (09:02)
[2021-10-07] MEDS: thiamine 100 mg Tablet PO (09:02)
[2021-10-07] MEDS: multivitamin therapeutic Tablet 1 TAB PO (09:53)
--- NOTE | 2021-10-07 12:09 | P.NPUPN_ITS ---
Subjective NPU Subjective: Patient presents today reporting that she is feeling a little more optimistic. She had a visit from her father and her that reportedly went better. She is dealing with the liquid diet essentially and her to embark upon the recommendations of the hospitalist for her to her resume treatment from a surgeon. We talked about the likelihood of discharge in the next 48 hours. Mental Status Exam MSE Comments: This is an underweight white female looking older than her stated age in hospital scrubs with adequate grooming and eye contact. No abnormal movements.? Cooperative with exam in no acute distress. Speech was normal rate and volume. Mood described as a little better I guess, affect c ongruent. Thought process organized, thought content: patient denies suicidal or homicidal ideation, there were no delusions reported or noted, she denied any auditory or visual hallucinations. Attention and concentration were intact and memory appeared reliable but none were formally tested. She?s alert and oriented times three. Insight and judgment appeared fair and impulse control appeared fair Vitals/I&O/Wt Last Vital Signs Temp 98.4 F 10/07/21 06:00 Pulse 90 10/07/21 06:00 Resp 16 10/07/21 06:00 BP 104/67 10/07/21 06:00 Pulse Ox 99 10/07/21 06:00 Weight last 48 hrs Weight 46.357 kg Data NPU : 10/02/21 03:07 10/02/21 03:07 A&P Assessment and plan (1) Esophageal stricture: Status: Acute (2) Alcohol use disorder, severe, dependence: Status: Acute (3) Major depressive disorder: Status: Acute (4) Anxiety: Status: Acute (5) Marital/partner relational problem: Status: Acute (6) Suicidal ideation: Status: Acute (7) GERD (gastroesophageal reflux disease): Status: Acute Plan This is a 61-year-old lady with alcoholism and severe esophageal stricture who has given up on living. Plan: 1.? [facility] protocol for alcohol withdrawal using IM Ativan.? Zyprexa Zydis 2.5 mg twice a day to try to stimulate her appetite. 2.? Continue every 15 minute checks for safety. 3.? Encourage individual, group and milieu therapies. 4.? Encourage sober living treatment after discharge at the highest level of care to which she is willing to commit. 5.? Work with hospitalist after consult with plan for surgical intervention for her esophageal constriction. Involuntary Hold Information 96 Hour Hold: 96 Hour Involuntary Admission: Yes 96 Hour Hold Ending Date: 10/08/21 96 Hour Hold Ending Time: 08:39 Attestations NPU Medical Necessity Statement*: Inpatient hospitalization is medically necessary and the clinically appropriate intervention at this time.? We will initiate medications and make changes as indicated.?? Likely length of stay 1-2 days Coding Level of Care Code Acute Assembler Dc [employer] [place] for [facility] Fwd Diagnoses Esophageal stricture K22.2 Alcohol use disorder, severe, dependence F10.20 Major depressive disorder F32.9 Anxiety F41.9 Marital/partner relational problem Z63.0 Suicidal ideation R45.851 GERD (gastroesophageal reflux disease) K21.9
[2021-10-07 14:00] VITALS: BP 114/60; PULSE 88; RESP 15; TEMP 36.7; O2SAT 99
[2021-10-07 19:41] VITALS: BP 115/71; PULSE 86; RESP 16; TEMP 36.9; O2SAT 99
[2021-10-07] MEDS: OLANZapine 5 mg ODT PO (20:13)
--- NOTE | 2021-10-07 20:55 | PC.NURSE ---
pt requested medication to help her wind down , zyprexa zydis 5mg po given.
[2021-10-08] MEDS: trazodone 50 mg Tablet PO (00:11)
--- NOTE | 2021-10-08 00:16 | PC.NURSE ---
Patient is unable to sleep. Trazadone 50mg given crushed in a small amount of orange juice. Will monitor effectiveness.
[2021-10-08 06:00] VITALS: BP 98/47; PULSE 82; RESP 16; TEMP 36.7; O2SAT 98
[2021-10-08] MEDS: thiamine 100 mg Tablet PO (08:36)
[2021-10-08] MEDS: multivitamin therapeutic Tablet 1 TAB PO (08:36)
[2021-10-08] MEDS: OLANZapine 5 mg ODT 2.5 MG PO (08:36)
[2021-10-08] MEDS: folic acid 1 mg Tablet PO (08:36)
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
[2021-10-08 12:35] VITALS: BP 98/47; PULSE 82; RESP 16; TEMP 36.7; O2SAT 98
[2021-10-08 13:12] VITALS: BP 98/47; PULSE 82; RESP 16; TEMP 36.7; O2SAT 98
[2021-10-08 14:00] VITALS: BP 98/47; PULSE 82; RESP 16; TEMP 36.7; O2SAT 98
== END 2021-10-08 15:37 | disposition home or self-care (01) | DRG 881 ==
LOC: ER 05:01 → NP 06:18
PROVIDERS: Admitting Provider Psychiatry & Neurology Psychiatry; Emergency Provider Emergency Medicine; PCP Physician Assistant; Visit Provider Psychiatry & Neurology Psychiatry
DX: F32.9 Major depressive disorder, single episode, unspecified (principal); R45.851 Suicidal ideations; Z68.1 Body mass index [BMI] 19.9 or less, adult; F10.20 Alcohol dependence, uncomplicated; Y90.6 Blood alcohol level of 120-199 mg/100 ml; K22.2 Esophageal obstruction; F41.9 Anxiety disorder, unspecified; K21.9 Gastro-esophageal reflux disease without esophagitis; R63.6 Underweight; Z63.0 Problems in relationship with spouse or partner
CPT/HCPCS: 74220; 80053; 80306; 80307; 83690; 85025; 92610; 96374; 96375; 97110; 97116; 97150; 97161; 97165; 99285; J2270; J2405; J3411; J3490; J7030

== ENCOUNTER 2021-10-11 08:05 | Day surgery (SDC) | payer OTHER, SELFPAY ==
[2021-10-11 08:26] VITALS: BMI 16.8
[2021-10-11 08:43] VITALS: BP 109/64; PULSE 91; RESP 18; TEMP 36.1; O2SAT 100
[2021-10-11] MEDS: sodium chloride 0.9% 1,000 ML 30 ML IV (08:54)
--- NOTE | 2021-10-11 09:20 | ANES.PREANE2 ---
Pre-Anesthetic Assessment Height/Weight: Height 1.63 m Weight 44.452 kg Temp Pulse Resp BP Pulse Ox 97 F L 91 18 109/64 100 10/11/21 08:43 10/11/21 08:43 10/11/21 08:43 10/11/21 08:43 10/11/21 08:43 Preop Diagnosis: Dysphagia Operation Date: 10/11/21 09:45 Proposed Procedures p EGD Dilation W/ Balloon 15636,K22.22(Not Applicable) - Tono Wray MD Familial anesthetic complications: None Was Beta Kyle taken within 24 hours: N/A Was Clonidine taken within 24 hours: N/A Last intake: Intake Last Liquid Date 10/10/21 Last Liquid Time 23:59 Last Solid Date 10/10/21 Last Solid Time 18:00 Social Alcohol and Tobacco Exam alert, oriented x 3 and regular rate & rhythm Airway Submandibular: within normal limits Cervical ROM: within normal limits Mallampati: Class II Dentition: chipped and partials Pulmonary Chronic Obstructive Pulmonary Disease GI Gastroesophageal Reflux Disease Esophageal stricture Neuropsych Anxiety and Depression Anesthetic Plan ASA status: 3 Anesthesia: MAC Medications/Allergies Home Medications Medication Instructions Recorded Confirmed Last Taken Type aspirin 81 mg tablet,delayed 81 - 162 mg PO DAILY PRN 10/02/21 10/11/21 09/27/21 History release olanzapine 5 mg disintegrating 2.5 mg PO 0900,2100 30 Days #30 tab 10/08/21 10/11/21 10/10/21 Rx tablet thiamine mononitrate (vit B1) 100 100 mg PO DAILY 30 Days #30 tab 10/08/21 10/11/21 10/10/21 Rx mg tablet (Vitamin B-1 (mononitrate)) trazodone 50 mg tablet 50 mg PO BEDTIME PRN 30 Days #30 10/08/21 10/11/21 10/10/21 Rx tab Allergies Allergy/AdvReac Type Severity Reaction Status Date / Time No Known Allergies Allergy Verified 10/11/21 08:59 Current Medications Generic Name Dose Route Start Last Admin Trade Name Freq PRN Reason Stop Dose Admin Sodium Chloride 1,000 mls @ 30 mls/hr 10/11/21 08:15 10/11/21 08:54 Sodium Chloride 0.9% IV 30 mls/hr .Q24H RELL Administration PFSH Anesthesia Medical History Alcoholism Esophageal stricture GERD (gastroesophageal reflux disease) Surgical History History of cholecystectomy S/P appendectomy Social History Smoking and tobacco status: current some day smoker Alcohol intake: current Data Anesthesia Cardiac Studies: No Data to Display
--- NOTE | 2021-10-11 09:30 | W.PM.OPSUD ---
Surgery/Procedure H&P Update DATE OF PROCEDURE: October 11, 2021 DATE H&P PERFORMED: 10/10/21 H&P UPDATE INFORMATION: I have reviewed H&P completed within last 30 days, I have examined patient prior to procedure and No changes to prior documentation PREOP DIAGNOSIS: Dysphagia PRIMARY INDICATION FOR PROCEDURE: The same PLANNED PROCEDURE: Operation Date: 10/11/21 09:45 Proposed Procedures p EGD Dilation W/ Balloon 97959,K22.22(Not Applicable) - Tono Wray MD
[2021-10-11 10:03] VITALS: BP 93/58; PULSE 109; RESP 16; TEMP 36.3; O2SAT 99
[2021-10-11] MEDS: ondansetron 2 mg/ML SDV 2 mL 4 MG IVP (10:14)
[2021-10-11 10:21] VITALS: BP 109/71; PULSE 96; RESP 18; O2SAT 100
--- NOTE | 2021-10-11 11:18 | ANE.PACU2 ---
Inpatient post-anesthesia follow up: Airway intact: Yes Vital signs: Temperature 97.4 F Pulse Rate 96 Respiratory Rate 18 Blood Pressure 109/71 Pulse Oximetry 100 Oxygen Delivery Me thod Room Air Oxygen Flow Rate Fraction of Inspir ed Oxygen Hydration adequate: Yes Nausea and vomiting: Yes (Mild in nature) Pain level: 1 Mental status: Baseline
== END 2021-10-11 10:29 | disposition home or self-care (01) ==
PROVIDERS: PCP Physician Assistant; Visit Provider Surgery
DX: K22.2 Esophageal obstruction (principal); R13.10 Dysphagia, unspecified; K44.9 Diaphragmatic hernia without obstruction or gangrene; K29.50 Unspecified chronic gastritis without bleeding; J44.9 Chronic obstructive pulmonary disease, unspecified; F41.9 Anxiety disorder, unspecified; F32.9 Major depressive disorder, single episode, unspecified; Z79.82 Long term (current) use of aspirin; F17.210 Nicotine dependence, cigarettes, uncomplicated
CPT/HCPCS: 43239; 43249; 88305; J2405; J2704; J7030

== ENCOUNTER 2021-12-25 09:45 | Outpatient (CLI) | payer OTHER, SELFPAY ==
--- NOTE | 2021-12-25 10:30 | FL_ITS ---
WS: [id number] MODIFIED BARIUM SWALLOW HISTORY: Dysphagia and difficulty swallowing. FLUOROSCOPY TIME: 2min [id number] # of spot films: 3 Modified barium swallow was performed by the speech pathologist. Fluoroscopy was provided with the pa tient in a lateral projection. Multiple food consistencies were provided. Patient swallowed all food consistencies without difficulty. No aspiration or laryngeal penetration. As noted on the prior barium swallow from 10/05/2021 there is a moderate stenosis involving the GE sandie ction. The barium tablet which measures 14 mm in diameter did not travel through the GE junction easi ly. This is consistent with at least a moderate stenosis. FL/FL barium swallow modifd 53736 IMPRESSION: 1. No aspiration or laryngeal penetration. 2. 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 Please see speech therapist report also for recommendations.
== END 2021-12-25 09:46 | disposition home or self-care (01) ==
LOC: RAD 09:46
PROVIDERS: PCP Physician Assistant; Visit Provider Surgery
DX: K22.2 Esophageal obstruction (principal); R13.10 Dysphagia, unspecified
CPT/HCPCS: 74230; 92611

== ENCOUNTER 2022-01-03 06:37 | Day surgery (SDC) | payer OTHER, SELFPAY ==
[2022-01-01 12:40] VITALS: BMI 20.5
[2022-01-03 07:00] VITALS: BP 114/71; PULSE 98; RESP 18; TEMP 36.2; O2SAT 99
[2022-01-03] MEDS: sodium chloride 0.9% 1,000 ML 30 ML IV (07:08)
--- NOTE | 2022-01-03 08:02 | ANES.PREANE2 ---
Pre-Anesthetic Assessment Height/Weight: Height 1.63 m Weight 54.431 kg Temp Pulse Resp BP Pulse Ox O2 Del Method 97.2 F L 98 18 114/71 99 01/03/22 07:00 01/03/22 07:00 01/03/22 07:00 01/03/22 07:00 01/03/22 07:00 01/03/22 07:00 Preop Diagnosis: Dysphagia Operation Date: 01/03/22 08:30 Proposed Procedures p EGD Dilation W/ Balloon 70004,K21.9(Not Applicable) - Tono Wray MD Last intake: Intake Last Liquid Date 01/02/22 Last Liquid Time 22:30 Last Solid Date 01/02/22 Last Solid Time 22:00 Social Alcohol and Tobacco Exam alert, oriented x 3, clear to auscultation bilaterally and regular rate & rhythm History/ROS No significant history except as noted GI Gastroesophageal Reflux Disease dysphagia Musc/skel Lower Back Pain Neuropsych Depression and Neuropathy schizotypal personality, major depressive Anesthetic Plan ASA status: 3 Anesthesia: Anesthesia Evaluation and MAC Risk of > 500 ml blood loss (7ml/kg in children): Yes, adequate IV access and fluids planned Medications/Allergies Home Medications Medication Instructions Recorded Confirmed Last Taken Type thiamine mononitrate (vit B1) 100 100 mg PO DAILY 30 days #30 tabs 11/05/21 01/03/22 01/02/22 Rx mg tablet (Vitamin B-1 (mononitrate)) quetiapine 100 mg tablet (Seroquel) 100 mg PO BEDTIME #30 tabs 12/14/21 01/03/22 01/02/22 Rx esomeprazole magnesium 20 mg 20 mg PO DAILY 12/31/21 01/03/22 01/02/22 History capsule,delayed release (Nexium) sucralfate 1 gram tablet (Carafate) 1 g PO TID 12 weeks #252 tabs 01/03/22 Unknown Rx Allergies Allergy/AdvReac Type Severity Reaction Status Date / Time No Known Allergies Allergy Verified 12/31/21 12:38 Current Medications Generic Name Dose Route Start Last Admin Trade Name Freq PRN Reason Stop Dose Admin Sodium Chloride 1,000 mls @ 30 mls/hr 01/03/22 07:00 01/03/22 07:08 Sodium Chloride 0.9% IV 30 mls/hr .Q24H RELL Administration PFSH Anesthesia Medical History Alcohol use disorder, severe, dependence last use 10/02/21 Alcoholism Cigarette nicotine dependence Esophageal stricture GERD (gastroesophageal reflux disease) Major depressive disorder, recurrent, moderate Psychiatric care Schizotypal personality disorder Surgical History History of cholecystectomy S/P appendectomy Social History Smoking and tobacco status: current every day smoker (pack ) Second hand smoke exposure: Yes Smoking risk assessment/counseling performed?: No Alcohol intake: current Data Anesthesia Cardiac Studies: No Data to Display
--- NOTE | 2022-01-03 08:29 | W.PM.OPSUD ---
Surgery/Procedure H&P Update DATE OF PROCEDURE: January 03, 2022 DATE H&P PERFORMED: 12/31/21 H&P UPDATE INFORMATION: I have reviewed H&P completed within last 30 days, I have examined patient prior to procedure and No changes to prior documentation PREOP DIAGNOSIS: Dysphagia PRIMARY INDICATION FOR PROCEDURE: The same PLANNED PROCEDURE: Operation Date: 01/03/22 08:30 Proposed Procedures p EGD Dilation W/ Balloon 08449,K21.9(Not Applicable) - Tono Wray MD
[2022-01-03 08:50] VITALS: BP 86/53; PULSE 111; RESP 14; TEMP 36.6; O2SAT 95
[2022-01-03 09:01] VITALS: BP 102/75; PULSE 110; RESP 18; O2SAT 96
--- NOTE | 2022-01-03 09:07 | ANES.PREANE2 ---
Pre-Anesthetic Assessment Height/Weight: Height 1.63 m Weight 54.431 kg Temp Pulse Resp BP Pulse Ox O2 Del Method 97.9 F 110 H 18 102/75 96 01/03/22 08:50 01/03/22 09:01 01/03/22 09:01 01/03/22 09:01 01/03/22 09:01 01/03/22 09:01 Preop Diagnosis: Dysphagia Operation Date: 01/03/22 08:30 Proposed Procedures p EGD Dilation W/ Balloon 03287,K21.9(Not Applicable) - Tono Wray MD Familial anesthetic complications: none Was Beta Kyle taken within 24 hours: N/A Was Clonidine taken within 24 hours: N/A Last intake: Intake Last Liquid Date 01/02/22 Last Liquid Time 22:30 Last Solid Date 01/02/22 Last Solid Time 22:00 Social Alcohol and Tobacco Exam alert, oriented x 3 and regular rate & rhythm Airway Submandibular: within normal limits Cervical ROM: within normal limits Mallampati: Class II Dentition: chipped Pulmonary Chronic Obstructive Pulmonary Disease GI Gastroesophageal Reflux Disease Neuropsych Anxiety and Depression schizo Anesthetic Plan ASA status: 3 Anesthesia: MAC Medications/Allergies Home Medications Medication Instructions Recorded Confirmed Last Taken Type thiamine mononitrate (vit B1) 100 100 mg PO DAILY 30 days #30 tabs 11/05/21 01/03/22 01/02/22 Rx mg tablet (Vitamin B-1 (mononitrate)) quetiapine 100 mg tablet (Seroquel) 100 mg PO BEDTIME #30 tabs 12/14/21 01/03/22 01/02/22 Rx esomeprazole magnesium 20 mg 20 mg PO DAILY 12/31/21 01/03/22 01/02/22 History capsule,delayed release (Nexium) sucralfate 1 gram tablet (Carafate) 1 g PO TID 12 weeks #252 tabs 01/03/22 Unknown Rx Allergies Allergy/AdvReac Type Severity Reaction Status Date / Time No Known Allergies Allergy Verified 12/31/21 12:38 Current Medications Generic Name Dose Route Start Last Admin Trade Name Freq PRN Reason Stop Dose Admin Sodium Chloride 1,000 mls @ 30 mls/hr 01/03/22 07:00 01/03/22 07:08 Sodium Chloride 0.9% IV 30 mls/hr .Q24H RELL Administration PFSH Anesthesia Medical History Alcohol use disorder, severe, dependence last use 10/02/21 Alcoholism Cigarette nicotine dependence Esophageal stricture GERD (gastroesophageal reflux disease) Major depressive disorder, recurrent, moderate Psychiatric care Schizotypal personality disorder Surgical History History of cholecystectomy S/P appendectomy Social History Smoking and tobacco status: current every day smoker (pack ) Second hand smoke exposure: Yes Smoking risk assessment/counseling performed?: No Alcohol intake: current Data Anesthesia Cardiac Studies: No Data to Display
[2022-01-03 09:16] VITALS: BP 104/64; PULSE 102; RESP 18; O2SAT 98
--- NOTE | 2022-01-03 15:13 | ANE.PACU2 ---
Inpatient post-anesthesia follow up: Airway intact: Yes Vital signs: Temperature 97.9 F Pulse Rate 102 Respiratory Rate 18 Blood Pressure 104/64 Pulse Oximetry 98 Oxygen Delivery Me thod Room Air Oxygen Flow Rate Fraction of Inspir ed Oxygen Hydration adequate: Yes Nausea and vomiting: No Pain level: 1 Mental status: Baseline
== END 2022-01-03 09:30 | disposition home or self-care (01) ==
PROVIDERS: PCP Physician Assistant; Visit Provider Surgery
DX: R13.10 Dysphagia, unspecified (principal); K21.9 Gastro-esophageal reflux disease without esophagitis; K22.2 Esophageal obstruction; K44.9 Diaphragmatic hernia without obstruction or gangrene; K29.70 Gastritis, unspecified, without bleeding; K29.50 Unspecified chronic gastritis without bleeding; J44.9 Chronic obstructive pulmonary disease, unspecified; F41.9 Anxiety disorder, unspecified; F32.A Depression, unspecified; F17.210 Nicotine dependence, cigarettes, uncomplicated
CPT/HCPCS: 43239; 43249; 88305; J2704; J7030

== ENCOUNTER 2022-01-17 06:29 | Day surgery (SDC) | payer OTHER, SELFPAY ==
[2022-01-15 13:04] VITALS: BMI 21.6
--- NOTE | 2022-01-17 06:46 | W.PM.OPSUD ---
Surgery/Procedure H&P Update DATE OF PROCEDURE: January 17, 2022 DATE H&P PERFORMED: 01/09/22 H&P UPDATE INFORMATION: I have reviewed H&P completed within last 30 days, I have examined patient prior to procedure and No changes to prior documentation PREOP DIAGNOSIS: Dysphagia/esophageal stricture PRIMARY INDICATION FOR PROCEDURE: The same PLANNED PROCEDURE: Operation Date: 01/17/22 08:00 Proposed Procedures p EGD with possible balloon dialation 40770,R13.10(Not Applicable) - Tono Wray MD
[2022-01-17 06:51] VITALS: BP 126/72; PULSE 88; RESP 18; TEMP 36.3; O2SAT 100
[2022-01-17] MEDS: sodium chloride 0.9% 1,000 ML 30 ML IV (07:02)
--- NOTE | 2022-01-17 07:48 | ANES.PREANE2 ---
Pre-Anesthetic Assessment Height/Weight: Height 1.63 m Weight 57.153 kg Temp Pulse Resp BP Pulse Ox O2 Del Method 97.4 F L 88 18 126/72 100 01/17/22 06:51 01/17/22 06:51 01/17/22 06:51 01/17/22 06:51 01/17/22 06:51 01/17/22 06:51 Preop Diagnosis: Dysphagia/esophageal stricture Operation Date: 01/17/22 08:00 Proposed Procedures p EGD with possible balloon dialation 08558,R13.10(Not Applicable) - Tono Wray MD Familial anesthetic complications: none Was Beta Kyle taken within 24 hours: N/A Was Clonidine taken within 24 hours: N/A Last intake: Intake Last Liquid Date 01/16/22 Last Liquid Time 22:00 Last Solid Date 01/16/22 Last Solid Time 22:00 Last Intake: 22:30 Social Tobacco and No alcohol Exam alert and oriented x 3 Airway Submandibular: within normal limits Cervical ROM: within normal limits Mallampati: Class I Dentition: full History/ROS No significant history except as noted Pulmonary None reported CV/HEM None reported None reported Hepatic None reported GI None reported Metabolic None reported Musc/skel None reported Neuropsych None reported Anesthetic Plan ASA status: 2 Anesthesia: Anesthesia Evaluation and MAC Risk of > 500 ml blood loss (7ml/kg in children): No Medications/Allergies Home Medications Medication Instructions Recorded Confirmed Last Taken Type thiamine mononitrate (vit B1) 100 100 mg PO DAILY 30 days #30 tabs 11/05/21 01/15/22 01/16/22 Rx mg tablet (Vitamin B-1 (mononitrate)) quetiapine 100 mg tablet (Seroquel) 100 mg PO BEDTIME #30 tabs 12/14/21 01/15/22 01/16/22 Rx esomeprazole magnesium 20 mg 20 mg PO DAILY 12/31/21 01/15/22 01/16/22 History capsule,delayed release (Nexium) sucralfate 1 gram tablet (Carafate) 1 g PO TID 12 weeks #252 tabs 01/03/22 01/15/22 01/16/22 Rx Allergies Allergy/AdvReac Type Severity Reaction Status Date / Time No Known Allergies Allergy Verified 01/15/22 13:02 Current Medications Generic Name Dose Route Start Last Admin Trade Name Yolanda PRN Reason Stop Dose Admin Sodium Chloride 1,000 mls @ 30 mls/hr 01/17/22 06:45 01/17/22 07:02 Sodium Chloride 0.9% IV 30 mls/hr .Q24H RELL Administration PFSH Anesthesia Medical History Alcohol use disorder, severe, dependence last use 10/02/21 Alcoholism Cigarette nicotine dependence Difficulty in swallowing Esophageal stricture GERD (gastroesophageal reflux disease) Major depressive disorder, recurrent, moderate Psychiatric care Schizotypal personality disorder Surgical History History of cholecystectomy S/P appendectomy Social History Smoking and tobacco status: current every day smoker (pack ) Second hand smoke exposure: Yes Smoking risk assessment/counseling performed?: No Alcohol intake: current Data Anesthesia Cardiac Studies: No Data to Display
--- NOTE | 2022-01-17 08:20 | ANE.PACU2 ---
Inpatient post-anesthesia follow up: Airway intact: Yes Vital signs: Temperature 97.4 F Pulse Rate 88 Respiratory Rate 18 Blood Pressure 126/72 Pulse Oximetry 100 Oxygen Delivery Me thod Room Air Oxygen Flow Rate Fraction of Inspir ed Oxygen Hydration adequate: Yes Nausea and vomiting: No Pain level: 1 Mental status: Baseline
[2022-01-17 08:21] VITALS: BP 105/78; PULSE 111; RESP 18; TEMP 36.1; O2SAT 99
[2022-01-17 08:33] VITALS: BP 119/78; PULSE 99; RESP 18; O2SAT 100
== END 2022-01-17 08:40 | disposition home or self-care (01) ==
PROVIDERS: PCP Physician Assistant; Visit Provider Surgery
DX: R13.10 Dysphagia, unspecified (principal); K22.2 Esophageal obstruction; K44.9 Diaphragmatic hernia without obstruction or gangrene; K29.70 Gastritis, unspecified, without bleeding; K21.9 Gastro-esophageal reflux disease without esophagitis; F17.210 Nicotine dependence, cigarettes, uncomplicated
CPT/HCPCS: 43249; J2704; J7030

== ENCOUNTER 2022-06-10 18:31 | Emergency (ER) | payer OTHER, SELFPAY ==
[2022-06-10 18:37] VITALS: BP 141/86; PULSE 103; RESP 16; TEMP 36.4; O2SAT 99
--- NOTE | 2022-06-10 19:39 | USR_ITS ---
PROCEDURE INFORMATION: Exam: US Duplex Left Lower Extremity Veins, Limited Exam date and time: 06/10/2022 7:58 PM Age: 61 years old Clinical indication: Edema, localized; Lower extremity, left; Patient HX: Lle edema and pain x 2 weeks. No history of dvt per patient. ; Additional info: Left lower leg swelling, no injury TECHNIQUE: Imaging protocol: Real-time duplex ultrasound of the Left extremity with 2-D bang scale, color Doppler flow and spectral waveform analysis including responses to compression and other maneuvers (when performed) with image documentation. Limited exam focused on the left lower extremity veins. COMPARISON: No relevant prior studies available. FINDINGS: Left deep veins: Unremarkable. The common femoral, femoral, proximal profunda femoral, popliteal, posterior tibial, and peroneal veins are patent without thrombus. Normal Doppler waveforms. Normal compressibility and/or augmentation response. Left superficial veins: Unremarkable. Saphenofemoral junction is patent without thrombus. Soft tissues: Unremarkable. US/CV venous duplex [facility] [id number] IMPRESSION: No evidence for deep venous thrombosis in the left lower extremity.
--- NOTE | 2022-06-10 19:39 | XRR_ITS ---
PROCEDURE INFORMATION: Exam: XR Right Hip Exam date and time: 06/10/2022 8:21 PM Age: 61 years old Clinical indication: Hip pain; Right hip; Additional info: Right hip pain TECHNIQUE: Imaging protocol: Radiologic exam of the Right hip. Views: 1 view hip with pelvis when performed. COMPARISON: CT angio abdomen pelvis [id number] 11/16/2015 9:58 AM FINDINGS: Bones/joints: No acute fracture. No dislocation. Normal bone mineralization. Stable mild degenerative changes in the right hip and right sacroiliac joint. Soft tissues: No soft tissue swelling. No radiopaque foreign body. Intraperitoneal space: Surgical anchors at the pelvis suggesting a prior hernia mesh repair. XR/XR hip RT 2-3V wo/w pel* [id number] IMPRESSION: 1. No acute fracture. MRI of the pelvis would be recommended if clinical concern for fracture persists. 2. Incidental/nonacute findings are listed in the report.
[2022-06-10] MEDS: HYDROcodone-acetaminophen 7.5-325 mg Tablet 1 TAB PO (19:42)
--- NOTE | 2022-06-10 19:44 | ED_ITS ---
HPI - Extremity Problem General: Chief complaint: Extremity Problem,Nontraumatic Stated complaint: Rt lewg Pain\Cant Walk Pain Time Seen by Provider: 06/10/22 18:49 History of Present Illness: Patient is a 61-year-old female comes to the ED with lower extremity complaint. Patient says for over the past 2 weeks she been developing some left lower leg swelling and right hip pain. Symptoms have continued to progress. She says her pain in her right hip is currently a 10 out of 10. Pain starts in right hip and then will radiate down into her leg. She states that she has trouble walking now due to right hip pain she denies any injury or trauma to cause symptoms. She recently started taking aripiprazole right before these symptoms started. Her dose was then doubled and her symptoms have gotten worse. Associated symptoms: Deny chest pain, fever(s) or rash Review of Systems Const: Denies: fever(s), chills or fatigue Eyes: Denies: change in vision or eye discomfort ENMT: Denies: throat pain, odynophagia, nasal discharge or nasal congestion Card: Denies: chest pain, palpitations, edema, swelling of feet/ankles, dyspnea on exertion or orthopnea Resp: Denies: dyspnea, productive cough or non-productive cough GI: Denies: abdominal pain, nausea, vomiting, diarrhea, constipation or hematochezia : Denies: flank pain, dysuria or hematuria Musc: Reports: extremity pain (Right hip pain) and extremity swelling (Left lower leg swelling); Denies: neck pain or back pain Skin/Breast: Denies: rash or new lesions Neuro: Denies: headache(s), numbness in extremities or weakness in extremities PFSH ED PFSH: Medical History Alcohol use disorder, severe, dependence last use 10/02/21, eight months sober Cigarette nicotine dependence Difficulty in swallowing Esophageal stricture GERD (gastroesophageal reflux disease) Major depressive disorder, recurrent, severe with psychotic symptoms Psychiatric care Schizotypal personality disorder Surgical History History of cholecystectomy S/P appendectomy Social History Smoking and tobacco status: current every day smoker Second hand smoke exposure: Yes Smoking risk assessment/counseling performed?: No Alcohol intake: former Year of sobriety/quit date alcohol: 2021 Physical Exam Const: COMMON NORMALS: no acute distress, patient oriented x3 and alert GENERAL APPEARANCE: cooperative HENMT: COMMON NORMALS: normocephalic HEAD & SCALP: normocephalic MOUTH: Normal oral and palatal mucosa present THROAT: posterior oropharynx normal and uvula midline Neck/C-Spine: COMMON NORMALS: supple GENERAL: Yes normal visual inspection Resp: COMMON NORMALS: normal respiratory effort, No retractions, No use of accessory muscles and clear to auscultation bilaterally AUSCULTATION: clear to auscultation bilaterally Cardio: COMMON NORMALS: regular rate, regular rhythm, S1 normal heart sound present, S2 normal heart sound present, No gallops present (Cardio), No clicks present (Cardio), No murmurs present (Cardio) and Peripheral pulses 2+ throughout RATE: regular rate RHYTHM: regular rhythm HEART SOUNDS: S1 normal heart sound present and S2 normal heart sound present PERIPHERAL PULSES: Peripheral pulses 2+ throughout GI: COMMON NORMALS: Normal to inspection, nondistended, normoactive bowel sounds present, Soft to palpation, non-tender and no masses PALPATION: Yes Soft to palpation : COMMON NORMALS: Yes no CVA tenderness BLADDER/KIDNEY EXAM: Yes no CVA tenderness Back/Pelvis: COMMON NORMALS: no CVA tenderness Extremity: COMMON NORMALS: normal to inspection and no calf tenderness GENERAL: Yes edema (2+ pitting edema to left ankle) Neuro: COMMON NORMALS: patient oriented x3 SENSORIUM/ORIENTATION: Yes alert GAIT: Yes Normal gait present Skin: GENERAL SKIN EXAM: dry skin Course Vital Signs: Vital signs: Vital Signs Temperature 97.6 F 06/10/22 18:37 Pulse Rate 103 H 06/10/22 18:37 Respiratory Rate 16 06/10/22 18:37 Blood Pressure 141/86 06/10/22 18:37 Pulse Oximetry 99 06/10/22 18:37 Oxygen Delivery Me thod 06/10/22 18:37 MDM - Extremity (Nontraumatic) Medical Decision Making Patient is a 61-year-old female comes to the ED with lower extremity complaint. Patient says for over the past 2 weeks she been developing some left lower leg swelling and right hip pain. Symptoms have continued to progress. She says her pain in her right hip is currently a 10 out of 10. Pain starts in right hip and then will radiate down into her leg. She states that she has trouble walking now due to right hip pain she denies any injury or trauma to cause symptoms. She recently started taking aripiprazole right before these symptoms started. Her dose was then doubled and her symptoms have gotten worse. Vitals are stable. Patient appears nontoxic in no acute distress or pain. She has 2+ pitting edema to left ankle, but no calf tenderness. Right hip x-ray shows no acute fractures or findings. Left venous duplex of left lower extremity shows no DVTs. Patient's left lower extremity swelling could likely be medication side affects to the aripiprazole. Right hip pain radiating down the leg is likely sciatica pain. She was stable for discharge home and sent home with a prescription for pain med and prednisone. She was told to follow-up with her PCP in the next 7 to 10 days for reevaluation. Return to ED precautions given. Patient understood and agreed with plan. Lab Data Radiology Impressions Hip/Pelvis X-Ray 06/10/22 19:39 IMPRESSION: 1. No acute fracture. MRI of the pelvis would be recommended if clinical concern for fracture persists. 2. Incidental/nonacute findings are listed in the report. Venous Duplex 06/10/22 19:39 IMPRESSION: No evidence for deep venous thrombosis in the left lower extremity. Discharge Plan Discharge Patient Disposition: Home Clinical Impression: Medication side effect Sciatic pain Qualifiers: Laterality: right Qualified Code(s): M54.31 - Sciatica, right side Condition: Stable Prescriptions: New prednisone 20 mg tablet 20 mg PO BID 5 Days Qty: 10 0RF No Action esomeprazole magnesium [Nexium] 20 mg capsule,delayed release(DR/EC) 20 mg PO DAILY PRN meloxicam 15 mg tablet 15 mg PO DAILY PRN aripiprazole [Abilify] 10 mg tablet 10 mg PO .evening Qty: 14 2RF Rx Instructions: Take one tablet every evening lorazepam [Ativan] 0.5 mg tablet 0.5 mg PO BID PRN (Reason: severe anxiety/agitation) Qty: 28 0RF Rx Instructions: May take one tablet twice per day as needed for severe anxiety/agitation gabapentin 100 mg capsule 100 mg PO BID Discharge Orders: Discharge ED (Routine); Ordered 06/10/22 Ordered By: Juarez Harris Referrals: Helene Moncada PA [Primary Care Provider] - Discharge Diet: Regular Discharge Activity: Increase activity as tolerated and Use walker/crutches as instructed Patient Instructions: Sciatica (ED) Activity Restrictions/Additional Instructions: Follow-up with medical provider as directed in the next 5 to 7 days for reevaluation. Take medications as prescribed. Discussed with your doctor about some a year medication side effects after starting Aripiprazole. Use crutches at home and limit weightbearing for the next couple days to help with symptoms and ambulation, then advance weightbearing as tolerated. Return to the ER or your medical provider if condition worsens. Please read and understand discharge instructions. Thank you for choosing [facility] for your healthcare needs today. Please realize this is an emergency room and that we are providing you with a medical screening exam and this may not be complete and all inclusive of all the testing and or work up that you may need to determine your ailment or severity of your illness. It is very important that you follow up as instructed or that you return to the Emergency Department should you have concerns or if your condition changes or worsens in any way. Coding Level of Care Code ED Instructional Technology Coordinator for Vale Page
[2022-06-10] MEDS: diphenhydrAMINE 50 mg Capsule PO (21:34)
== END 2022-06-10 22:19 | disposition home or self-care (01) ==
PROVIDERS: Emergency Provider Physician Assistant; PCP Physician Assistant
DX: M54.31 Sciatica, right side (principal); T43.595A Adverse effect of other antipsychotics and neuroleptics, initial encounter; F17.210 Nicotine dependence, cigarettes, uncomplicated
CPT/HCPCS: 73502; 93971; 96372; 99284; J2930; Q0163

== ENCOUNTER 2025-04-03 11:10 | Emergency (ER) | payer OTHER, SELFPAY ==
[2025-04-03] VITALS (23 sets, daily range): BP systolic 127–158; BP diastolic 70–89; PULSE 112–139; RESP 17–33; TEMP 37.8; O2SAT 90–100; BMI 18.8
--- OUTSIDE RECORDS SUMMARY | 2025-04-03 11:20 | XMS_ITS | Continuity of Care Document ---
Author Organization [facility] [place] [facility] Lori Bhatti, [facility] ([facility]) Address [address] [place] [address] Care Team Providers Care Personnel Records Clerk Name Role Phone HELENE GARCIA Primary Care Provider Unavailabl e Assessment No assessment recorded. Plan of Treatment Reminders Order Date Submit Date Provider Last Modified By Organization Details Last Modified Time Details Appointments None recorded. Lab None recorded. Referral None recorded. Procedures None recorded. Surgeries None recorded. Imaging None recorded. Medication Orders Gaviscon Extra Strength 254 mg-237.5 mg/5 mL oral suspension 2024 [facility], [address], [place], [address], 16:11:35 amoxicillin 250 mg/5 mL oral suspension 2024 025 [facility], [address], [place], [address], 05:01:01 Patient TargetsNo targets recorded. Patient Instructions Encounter Date Encounter Id Patient Instructions Last Modified By Organization Details Last Modified Time 03/10/2025 [id number] Follow up with PCP for ongoing care. [email or web address] Not available 03/10/2025 18:57:52 Reason for Referral None Reported. Problems Name Problem SNOMED Code Status Onset Date Resolution Date Notes Provider Name and Address Organization Details Recorded Time Neuropathy 297184998 Active 2023 RITA WELLS [address] [place] [address], [phone], [facility], [facility] 15:59:21 Chronic low back pain 416243062 Active 2023 BRITNEY PRITCHARD, [address], [phone], [facility], LCecilioLC[facility]ilioCCecilio 15:59:04 Acute low back pain 947840568 Active [address], [phone], [facility], LCarleyCCecilio 17:33:04 Osteoarthritis 925735660 Active [address], [address], [facility], LCecilioLC[facility]ilioCCec[facility] 17:33:06 Problem Notes None recorded. Procedures Surgical History Date Name Laterality Status Provider Name and Address Organization Details Recorded Time procedure on kidney completed [facility], [facility] 10/24/2023 15:04:45 Appendectomy completed [facility], [facility] 10/24/2023 15:04:51 Partial Hysterectomy completed [facility], [facility] 10/24/2023 15:04:57 Gallbladder Surgery completed [facility], [facility] 10/24/2023 15:05:08 Imaging Results None recorded. Procedure Notes None recorded. Medical Equipment None Reported. Allergies No known drug allergies Medications Name Sig Start Date Stop Date Status Note LastModified by Organization Details LastModified Time Gaviscon Extra Strength 254 mg-237.5 mg/5 mL oral suspensio n 1 tablespo on after meals and at bedtime 2024 active Not Available Not Available Not Avai lable cyclobenz aprine 10 mg tablet TAKE 1 TABLET BY MOUTH THREE TIMES DAILY NEEDED FOR SEVERE PAIN AND FOR MUSCLE SPASM 05/22/ 2025 11/20 /2025 completed Not Available Not Available Not Available meloxicam 15 mg tablet TAKE 1 TABLET BY MOUTH ONCE DAILY FOR ARTHRITI S PAIN FOR BACK PAIN 03/10 completed Not Available Not Available Not Available prednison e 20 mg tablet 02/09 completed Not Available Not Available Not Available sulfameth oxazole 800 mg-trimet hoprim 160 mg tablet TAKE 1 TABLET BY MOUTH EVERY 12 HOURS FOR 7 DAYS 08/09 completed Not Available Not Available Not Available Nexium 20 mg capsule,d elayed release daily 03/10 completed 0; Recorded 05/23/19 9:55AM by Velvet Antony LPN, Office Visit; Not Available Not Available Not Available amoxicill in 250 mg/5 mL oral suspensio n Take 10 mL every 8 hours by oral route with meal(s) for 10 days. 03/27 completed Not Available Not Available Not Available benzonata te 100 mg capsule TAKE 1 CAPSULE BY MOUTH TWICE DAILY NEEDED FOR COUGH 02/09 completed Not Available Not Available Not Available gabapenti n 100 mg capsule TAKE 1 CAPSULE BY MOUTH TWICE DAILY (NEEDS APPOINTM ENT FOR MORE REFILLS) 03/10 completed Not Available Not Available Not Available albuterol sulfate HFA 90 mcg/actua tion aerosol inhaler INHALE 2 PUFFS BY MOUTH EVERY 6 HOURS NEEDED FOR SHORTNES S OF BREATH FOR WHEEZING 02/09 completed Not Available Not Available Not Available doxycycli ne hyclate 100 mg tablet 02/09 completed Not Available Not Available Not Available amoxicill in 500 mg-potass ium clavulana te 125 mg tablet TAKE 1 TABLET BY MOUTH EVERY 12 HOURS FOR 7 DAYS 02/09 completed Not Available Not Available Not Available escitalop mallika 10 mg tablet TAKE 1 TABLET BY MOUTH IN THE MORNING 03/10 completed Not Available Not Available Not Available gabapenti n two times daily 10/23 completed vo KM/dh; [id number]; Recorded 06/21/19 23 2:38PM by Velvet Antony LPN (Authori eldon through Helene Garcia PA-C), Office Visit; Refill Quantity : 60; Capsule; Not Available Not Available Not Available Mobic daily 10/234 completed Recorded 06/21/19 3:05PM by Helene Garcia PA-C, Office Visit; Refill Quantity : 30; Tablet; Not Available Not Available Not Available Vitals Date Recorded Body height Body mass index (BMI) Body weight Oxygen saturation Heart rate Body temperature Systolic And Diastolic Provider Name and Address Organization Details Last Updated DateTime 162.56 cm 19.2 kg/m2 10494.3 5 g 98 % 106 /min 98.1 [degF] 100/78 mm[Hg] Jodie Parks [facility] 15:46:54 Social History Question Answer Notes LastModified by Organizat ion Details LastModified Time Tobacco Smoking Status Current Every Day Smoker Bereniceaquiles duff [facility] 10/24/2023 15:04:31 What Was The Date Of Your Most Recent Tobacco Screening? 03/10/2025 [email or web address] Information not available 03/10/2025 Sex: Unknown Functional Status None recorded. Mental Status None recorded. Family History Nothing Reported. Medical History No medical history recorded. Gynecological HistoryNo gynecological history recorded. Obstetrics History GPAL:G 0 P 0 0 0 0 Past Encounters Encounter ID Performer Location Encounter Start Date Encounter Closed Date Diagnosis/Indication Diagnosis SNOMED-CT Code Diagnosis ICD10 Code Diagnosis IMO Codes Diagnosis Note [id number] NYA DELACRUZ APRN [facility] ([facility]) [address] [place] [phone] 03/10/2025 15:37:37 03/14/2025 12:38:55 Gastro-esophageal reflux disease with esophagitis 715533713 K21.00 5019271965 Acute supp urative otitis media without spontaneous rupture of ear drum 60427054 H66.002 [id number] Health Concerns Section Related Observation LastModified by Organization Detai ls LastModified Time None Recorded Concern Status LastModified by Organization Details LastModified Time None Recorded Payers Encounter Date Sequence Insurance Name Policy Number Policy Meyer Covered Member ID Meyer Member ID Guarantor Name 03/10/2025 1 [employer] - [employer] (PPO) [id number] Naida Dallas [id number] Naida Dallas Notes Date Note Type Note Provider Name and Address Organization Details Recorded Time 03/10/2025 text/html walk inx1 month cough, nasal congestionShe admits to drinking whiskey all day NYA DELACRUZ, [employer] [address] [place], [address], [facility] 03/10/2025 18:58:02 OBGyn Episode No OBEpisode recorded.
--- OUTSIDE RECORDS SUMMARY | 2025-04-03 11:20 | XMS_ITS | Data Portability ---
Author Organization [facility] Jacob Colunga [facility], [place], [facility] Address [address] [address] Care Team Providers Care Helium Arc Welder Name Role Phone HELENE GARCIA Primary Care Provider Unavailabl e Assessment No assessment recorded. Plan of Treatment Reminders Order Date Submit Date Provider Last Modified By Organization Details Last Modified Time Details Appointments None recorded. Lab urinalysis , dipstick 2024 025 [facility] ([facility]), [address] [place] [address], [address], 5 16:14:23 culture, urine 2024 025 [place] Shahab P. Tabatabai, Broker [facility], [address] [facility] [address] [place], [address], 5 01:35:04 infectious disease panel 2023 024 [place] [employer] [facility], [address], [place], [address], 4 13:25:48 SARS CoV 2 RNA, QL, nasopharyn x [address] ([facility]), [address] [place] [address], [address], 4 15:32:08 Referral None recorded. Procedures None recorded. Surgeries None recorded. Imaging XR, lumbosacra l spine, 4 or more view 2023 024 [email or web address] 2 [facility] ([facility]), [address] [facility], [place], [address], 4 10:11:15 Medication Orders Gaviscon Extra Strength 254 mg-237.5 mg/5 mL oral suspension 2024 025 [facility] 15, [address], [place], [address], 5 16:11:35 amoxicilli n 250 mg/5 mL oral suspension 2024 025 [facility] 15, [address], [place], [address], 5 05:01:01 meloxicam 15 mg tablet 2024 025 [facility] 15, [address], [place], [address], 5 16:53:32 cyclobenza freda 10 mg tablet 2024 025 [facility] 15, [address], [place], [address], 5 15:43:27 Bactrim DS 800 mg-160 mg tablet 2024 025 [facility] 15, [address], [place], [address], 5 17:04:17 meloxicam 15 mg tablet 2023 024 [facility] 15, [address], [place], [address], 5 15:43:35 gabapentin 100 mg capsule 2023 024 [email or web address], [address], [place], [address], 15:43:32 Augmentin 500 mg-125 mg tablet 2023 [facility], [address], [place], [address], 14:36:54 Patient TargetsNo targets recorded. Patient Instructions Encounter Date Encounter Id Patient Instructions Last Modified By Organization Details Last Modified Time 08/09/2024 [id number] back pain: care instructions Not available 08/09/2024 17:33:12 03/10/2025 [id number] Follow up with PCP for ongoing care. [email or web address] Not available 03/10/2025 18:57:52 Reason for Referral None Reported. Results Created Date Observation Date Name Description Value Unit Range Abnormal Flag Note LastModifiedBy Organization Detail LastModifiedTime 10/24/19 24 10/25/2023 RE SPIRA TORY TRACT INFEC TION PLUS streptococcu s pyogenes (group A strep) 0.000 ppm 19.961 - 24.689 normal Not Detec chilo Not Available [employer] [address], [place], [address], 10/25/2023 13:25:48 10/24/19 24 10/25/2023 RE SPIRA TORY TRACT INFEC TION PLUS streptococcu s pneumoniae 0.000 ppm 19.961 - 24.689 normal Not Detec chilo Not Available [facility] [address], [place], [address], 10/25/2023 13:25:48 10/24/19 24 10/25/2023 RE SPIRA TORY TRACT INFEC TION PLUS streptococcu s agalactiae (group B strep) 0.000 ppm 19.961 - 24.689 normal Not Detec chilo Not Available [facility] [address], [place], [address], 10/25/2023 13:25:48 10/24/19 24 10/25/2023 RE SPIRA TORY TRACT INFEC TION PLUS staphylococc us aureus 0.000 ppm 19.961 - 24.689 normal Not Detec chilo Not Available [facility] [address], [place], [address], 10/25/2023 13:25:48 10/24/19 24 10/25/2023 RE SPIRA TORY TRACT INFEC TION PLUS serratia marcescens 0.000 ppm 19.961 - 24.689 normal Not Detec chilo Not Available [facility] [address], [place], [address], 10/25/2023 13:25:48 10/24/19 24 10/25/2023 RE SPIRA TORY TRACT INFEC TION PLUS respiratory syncytial virus ([id number]_VI9999 0015_po) 0.000 ppm 23.000 - 31.722 normal Not Detec chilo Not Available [facility] [address], [place], [address], 10/25/2023 13:25:48 10/24/19 24 10/25/2023 RE SPIRA TORY TRACT INFEC TION PLUS pseudomonas aeruginosa 0.000 ppm 19.961 - 24.689 normal Not Detec chilo Not Available [facility] [address], [place], [address], 10/25/2023 13:25:48 10/24/19 24 10/25/2023 RE SPIRA TORY TRACT INFEC TION PLUS proteus mirabilis, vulgaris 0.000 ppm 19.961 - 24.689 normal Not Detec chilo Not Available [facility] [address], [place], [address], 10/25/2023 13:25:48 10/24/19 24 10/25/2023 RE SPIRA TORY TRACT INFEC TION PLUS parainfluenz a virus (types 1, 2, 3, 4) 0.000 ppm 23.000 - 31.313 normal Not Detec chilo Not Available [facility] [address], [place], [address], 10/25/2023 13:25:48 10/24/19 24 10/25/2023 RE SPIRA TORY TRACT INFEC TION PLUS mycoplasma pneumoniae 0.000 ppm 19.961 - 24.689 normal Not Detec chilo Not Available [facility] [address], [place], [address], 10/25/2023 13:25:48 10/24/19 24 10/25/2023 RE SPIRA TORY TRACT INFEC TION PLUS moraxella catarrhalis 0.000 ppm 19.961 - 24.689 normal Not Detec chilo Not Available [facility] [address], [place], [address], 10/25/2023 13:25:48 10/24/19 24 10/25/2023 RE SPIRA TORY TRACT INFEC TION PLUS legionella pneumophila 0.000 ppm 19.961 - 24.689 normal Not Detec chilo Not Available [facility] [address], [place], [address], 10/25/2023 13:25:48 10/24/19 24 10/25/2023 RE SPIRA TORY TRACT INFEC TION PLUS klebsiella pneumoniae, oxytoca 0.000 ppm 19.961 - 24.689 normal Not Detec chilo Not Available [facility] [address], [place], [address], 10/25/2023 13:25:48 10/24/19 24 10/25/2023 RE SPIRA TORY TRACT INFEC TION PLUS influenza virus B 0.000 ppm 23.000 - 30.081 normal Not Detec chilo Not Available [facility] [address], [place], [address], 10/25/2023 13:25:48 10/24/19 24 10/25/2023 RE SPIRA TORY TRACT INFEC TION PLUS human metapneumovi felix 0.000 ppm 23.000 - 32.210 normal Not Detec chilo Not Available [facility] [address], [place], [address], 10/25/2023 13:25:48 10/24/19 24 10/25/2023 RE SPIRA TORY TRACT INFEC TION PLUS haemophilus influenzae 0.000 ppm 19.961 - 24.689 normal Not Detec chilo Not Available [facility] [address], [place], [address], 10/25/2023 13:25:48 10/24/19 24 10/25/2023 RE SPIRA TORY TRACT INFEC TION PLUS escherichia coli 0.000 ppm 19.961 - 24.689 normal Not Detec chilo Not Available [facility] [address], [place], [address], 10/25/2023 13:25:48 10/24/19 24 10/25/2023 RE SPIRA TORY TRACT INFEC TION PLUS enterovirus D68 0.000 ppm 23.000 - 32.117 normal Not Detec chilo Not Available [facility] [address], [place], [address], 10/25/2023 13:25:48 10/24/19 24 10/25/2023 RE SPIRA TORY TRACT INFEC TION PLUS coronaviruse s (229E, nl63, hku1, oc43) (g_betacoron avirus_1_g_c oronavirus_h ku1) 0.000 ppm 23.000 - 31.416 normal Not Detec chilo Not Available [facility] [address], [place], [address], 10/25/2023 13:25:48 10/24/19 24 10/25/2023 RE SPIRA TORY TRACT INFEC TION PLUS chlamydia pneumoniae 0.000 ppm 19.961 - 24.689 normal Not Detec chilo Not Available [facility] [address], [place], [address], 10/25/2023 13:25:48 10/24/19 24 10/25/2023 RE SPIRA TORY TRACT INFEC TION PLUS bordetella pertussis, parapertussi s, bronchisepti ca 0.000 ppm 19.961 - 24.689 normal Not Detec chilo Not Available [facility] [address], [place], [address], 10/25/2023 13:25:48 10/24/19 24 10/25/2023 RE SPIRA TORY TRACT INFEC TION PLUS acinetobacte r baumannii 0.000 ppm 19.961 - 24.689 normal Not Detec chilo Not Available [facility] [address], [place], [address], 10/25/2023 13:25:48 10/24/19 24 10/25/2023 RE SPIRA TORY TRACT INFEC TION PLUS covid-19 coronavirus (sars-cov-2) NEGATI VE normal Not Detec chilo Not Available [facility] [address], [place], [address], 10/25/2023 13:25:48 10/24/19 24 10/25/2023 RE SPIRA TORY TRACT INFEC TION PLUS rhinovirus/e nterovirus (RV_2of2_VI9 9990017_po) 19.346 ppm 23.000 - 32.985 abnormal Detec chilo Not Available [facility] [address], [place], [address], 10/25/2023 13:25:48 10/24/19 24 10/25/2023 RE SPIRA TORY TRACT INFEC TION PLUS adenovirus (adv_1of2_VI 99990001_po) 0.000 ppm 23.000 - 31.943 normal Not Detec chilo Not Available [facility] [address], [place], [address], 10/25/2023 13:25:48 10/24/19 24 10/25/2023 RE SPIRA TORY TRACT INFEC TION PLUS enterobacter aerogenes, cloacae 0.000 ppm 19.961 - 24.689 normal Not Detec chilo Not Available [facility] [address], [place], [address], 10/25/2023 13:25:48 10/24/19 24 10/24/2023 SARS CoV 2 RNA, QL, nasop haryn x COVID negati ve Not Available [facility] ([facility]) [address] [place] [address], [address], 10/24/2023 15:09:30 06/15/19 25 06/19/2024 CULTU RE, URINE , ROUTI NE culture, urine, routine SEE NOTE abnormal CULTU RE, URINE , ROUTI NE Micro Numbe r: [id number] Test Statu s: Final Speci men Sourc e: Urine , clean catch Speci men Quali ty: Adequ ate Resul t: Great er than 100,0 00 CFU/m L of Esche sanjana a coli E.col i ----- ----- ----- - INT EVER AMOX/ CLAVU LANAT E S <=2 AMP/S ULBAC CASAS S <=2 CEFAZ YAO NR <=4 2 CEFEP DESHAUN S <=0.1 2 CEFTA ZIDIM E S <=1 CEFTR IAXON E S <=0.2 5 CIPRO FLOXA YAHIR S <=0.0 6 GENTA MICIN S <=1 IMIPE NEM S <=0.2 5 LEVOF LOXAC IN S <=0.1 2 MEROP ENEM S <=0.2 5 NITRO FURAN TOIN S <=16 PIP/T AZOBA CTAM S <=4 TRIME THOPR IM/CANALES LFA S <=20 S = Susce ptibl e I = Inter media te R = Resis tant NS = Not susce ptibl e SDD = Susce ptibl e Dose Depen dent * = Not Teste d NR = Not Repor chilo NN = See Thera py Comme nts THERA PY COMME NTS Note 1: For infec tions other than uncom plica chilo UTI cause d by E. coli, K. pneum oniae or P. mirab ilis: Cefaz yao is resis tant if EVER > or = 8 mcg/m L. (Dist ingui shing susce ptibl e versu s inter media te for isola devang with EVER < or = 4 mcg/m L requi res addit ional testi ng.) Note 2: For uncom plica chilo UTI cause d by E. coli, K. pneum oniae or P. mirab ilis: Cefaz yao is susce ptibl e if EVER <32 mcg/m L and predi cts susce ptibl e to the oral agent s cefac ying, cefdi sri, cefpo doxim e, cefpr ozil, cefur oxime , cepha lexin and lorac arbef . Not Available [facility] [address] [place] [address], [address], 06/19/2024 01:35:04 06/15/19 25 06/15/2024 urina lysis , dipst ick Leukocytes Trace Not Available [facility] ([facility]) [address] [place] [address], [address], 06/15/2024 16:05:42 06/15/19 25 06/15/2024 urina lysis , dipst ick Nitrite positi ve Not Available [facility] ([facility]) [address] [place] [address], [address], 06/15/2024 16:05:42 06/15/19 25 06/15/2024 urina lysis , dipst ick Urobilinogen 1 Not Available [facility] ([facility]) [address] [place], [address], 06/15/2024 16:05:42 06/15/19 25 06/15/2024 urina lysis , dipst ick Protein 30 Not Available [facility] ([facility]) [address] [place], [address], 06/15/2024 16:05:42 06/15/19 25 06/15/2024 urina lysis , dipst ick pH 8.5 Not Available [facility] ([facility]) [address] [place], [address], 06/15/2024 16:05:42 06/15/19 25 06/15/2024 urina lysis , dipst ick Blood Negati ve Not Available [facility] ([facility]) [address] [place], [address], 06/15/2024 16:05:42 06/15/19 25 06/15/2024 urina lysis , dipst ick Specific Critz 1.020 Not Available [facility] ( [facility]) [address] [place], [address], 06/15/2024 16:05:42 06/15/19 25 06/15/2024 urina lysis , dipst ick Ketone Small Not Available [facility] ([facility]) [address] [place], [address], 06/15/2024 16:05:42 06/15/19 25 06/15/2024 urina lysis , dipst ick Bilirubin Negati ve Not Available [facility] ([facility]) [address] [place], [address], 06/15/2024 16:05:42 06/15/19 25 06/15/2024 urina lysis , dipst ick Glucose Negati ve Not Available [facility] ([facility]) [address] [place], [address], 06/15/2024 16:05:42 06/15/19 25 06/15/2024 urina lysis , dipst ick Appearance Clear Not Available [facility] ([facility]) [address] [place], [address], 06/15/2024 16:05:42 06/15/19 25 06/15/2024 urina lysis , dipst ick Color Dark Yellow Not Available [facility] ([facility]) [address] [place], [address], 06/15/2024 16:05:42 02/13/20 24 02/10/2024 XR, lumbo sacra l spine , 4 or more view No observ ation record ed. [address] [place], [address], 02/17/2024 08:40:08 02/13/2002/10/2024 XR, lumbo sacra l spine , 4 or more view No observ ation record ed. [address] [place], [address], 02/17/2024 08:40:09 Result Notes None recorded. Problems Name Problem SNOMED Code Status Onset Date Resolution Date Notes Provider Name and Address Organization Details Recorded Time Neuropathy 088617195 Active 2023 RITA WELLS [address] [place], [address], [facility], [place] 15:59:21 Chronic low back pain 722249044 Active 2023 BRITNEY PRITCHARD, CLERK ANALYST [address] [place], [address], [facility], [place] 15:59:04 Acute low back pain 496686981 Active 20[facility] [address] [place], [address], [facility], [place] 17:33:04 Osteoarthritis 747427111 Active 2024 [facility] [address] [place], [address], [facility], [place] 17:33:06 Problem Notes None recorded. Procedures Surgical History Date Name Laterality Status Provider Name and Address Organization Details Recorded Time [facility] 15:04:45 Appendectomy completed [facility], [place] 10/24/2023 15:04:51 Partial Hysterectomy completed [facility], [place] 10/24/2023 15:04:57 [facility] 15:05:08 Imaging Results None recorded. Procedure [...] FOR SEVERE PAIN AND FOR MUSCLE SPASM 03/10 completed Not Available Not Available Not [...] release daily 03/10 completed 0; Recorded 05/23/19 23 9:55AM by Velvet Hidalgo LPN, Office Visit; Not Available Not Available [...] two times daily 10/23 completed vo KM/dh; [id number]; Recorded 06/21/19 23 2:38PM by Velvet Hidalgo LPN (Authori eldon through Helene Garcia PA-C), Office Visit; Refill Quantity : 60; Capsule; Not Available Not Available Not Available Mobic daily 10/23 completed Recorded 06/21/19 23 3:05PM by Helene Garcia PA-C, Office Visit; Refill Quantity : 30; Tablet; Not Available Not Available Not Available Vitals Date Recorded Body height Body mass index (BMI) Body weight Oxygen saturation Heart rate Body temperature Systolic And Diastolic Provider Name and Address Organization Details Last Updated DateTime 5 162.56 cm 18.1 kg/m2 62638.6 g 98 % 107 /min 97.8 [degF] 142/98 mm[Hg] Jodie Parks [facility] 5 15:57:38 Date Recorded Body height Body mass index (BMI) Body weight Body temperature Heart rate Oxygen saturation Systolic And Diastolic Provider Name and Address Organization Details Last Updated DateTime 5 162.56 cm 18.8 kg/m2 32994.6 7 g 97.9 [degF] 76 /min 99 % 144/82 mm[Hg] Shruthi Rand [facility] 5 16:57:29 Date Recorded Body height Body mass index (BMI) Body weight Oxygen saturation Heart rate Respiratory rate Body temperature Systolic And Diastolic Provider Name and Address Organization Details Last Updated DateTime 4 162.56 cm 18.1 kg/m2 75501 g 97 % 84 /min 16 /min 98.8 [degF] 166/84 mm[Hg] Berenice Russjason [facility] 4 15:03:13 Date Recorded Body height Body mass index (BMI) Body weight Oxygen saturation Heart rate Respiratory rate Body temperature Systolic And Diastolic Provider Name and Address Organization Details Last Updated DateTime 4 162.56 cm 19.2 kg/m2 59701.3 5 g 95 % 80 /min 20 /min 97 [degF] 140/80 mm[Hg] VELVET HIDALGO [facility] 4 14:31:33 Date Recorded Body height Body mass index (BMI) Body weight Oxygen saturation Heart rate Body temperature Systolic And Diastolic Provider Name and Address Organization Details Last Updated DateTime 5 162.56 cm 19.2 kg/m2 66082.3 5 g 98 % 106 /min 98.1 [degF] 100/78 mm[Hg] Jodie Parks [facility] 15:46:54 Social History Question Answer Notes LastModified by Organizat ion Details LastModified Time Tobacco Smoking Status Current Every Day Smoker Berenice duff, [facility] 10/24/2023 15:04:31 What Was The Date [...] ICD10 Code Diagnosis IMO Codes Diagnosis Note [id number] RITA WELLS [facility] ([facility]) [address] [place] [address] 10/24/2023 14:49:14 10/24/2023 15:56:39 Cough 00207386 R05.9 Acute bact erial bronchitis 973762381 J20.9 Will contact with test results once completed. Discussed otc meds for symptom management [id number] HELENE GARCIA PA-C [facility] ([facility]) [address] [place] [address] 02/10/2024 14:26:30 02/10/2024 16:58:58 Chronic low back pain 211970456 M54.50 pt with severe scoliosis of the lumbar spine on xray.due to her hx of mental health and alcohol abuse she is not a candidate for opiate tx or surgery.Sh e declines PT at this time and will try the NSAID and gabapentin Osteoarthritis 486308328 M19.90 Neuropathy 395817421 G62 .9 Harmful pa ttern of use of alcohol 21126010 F10.10 Bipolar I disorder 73812 6008 F31.9 [id number] RITA WELLS [facility] ([facility]) [address] [place] [address] 06/15/2024 15:47:48 06/15/2024 16:20:47 Fatigue 58116312 R53.83 Acute urin angela tract infection 655043985 N39.0 UA results reviewed and discussed with pt. We will start antibiotic s. Pt will increase oral fluids and can use cranberry. Return to office with no improvemen t or any problems. Go to ER with severe worsening or severe problems.W e will obtain urine culture [id number] Jt Mcnamara DO [facility] ([facility]) [address] [place] [address] 5 08/09/2024 16:43:40 08/26/2024 16:06:39 Acute low back pain 434205794 M54.50 [id number] concern for lumbar disc flair with possible nerve impingemen t and muscle spasm. will start prednisone and muscle relaxer. pt to take nsaids and tylenol otc.Consid er Xrays.Retu rn to office with no improvemen t or any problems. Go to ER with severe worsening or severe problems. Osteoarthritis 477431457 M19.90 start daily NSAIDS. [id number] NYA DELACRUZ APRN [facility] ([facility]) [address] [place] [address] 03/10/2025 15:37:37 03/14/2025 12:38:55 Gastro-esophageal reflux disease with esophagitis 393073972 K21.00 1228308509 Acute supp urative otitis media without spontaneous rupture of ear drum 46986815 H66.002 [id number] Health Concerns Section Related Observation LastModified by Organization Detai ls LastModified Time None Recorded Concern Status LastModified by Organization Details LastModified Time None Recorded Advance Directives Directive None Recorded Payers Insurance Date Sequence Insurance Name Policy Number Policy Meyer Covered Member ID Meyer Member ID Guarantor Name 03/10/2025 1 [employer] [place] [id number] Naida [place] [id number] Naida [place] 03/10/2025 1 [employer] - IF[employer] (PPO) [id number] Naida [place] [id number] Naida [place] Notes Date Note Type Note Provider Name and Address Organization Details Recorded Time 10/24/2023 text/html CoughReported by PatientHPIFor severity, patient reportsworsening. For associated symptoms, patient reportschillsbut reportsno fever. For quality, patient reportsdryandharsh.ROS as noted in the HPI walk in patientpatient is here today for a cough, congestion and runny nose that started a couple of days ago after she got [place] from a river trip. denies fever. The cough is dry. Eating/drinking normally. States she took a couple shots of whiskey this morning for the cough. RITA WELLS [address] [place], [address], [facility] 10/24/2023 16:00:21 02/10/2024 text/html Back PainReporte d by PatientHPIFor location, patient reportsradiation to buttocks __but reportsthoracic leftandlumbar left. For severity, patient reportsworsening,pain level 10/10,interferes with sleep, andinterferes with work. For associated symptoms, patient reportsweakness. For quality, patient reportssharp,tingling, dull,stiffness,throbbi ng,tender,shooting,pre ssure,squeezing,tightn ess,burning, andstabbing. For duration, patient reports9 years. For timing, patient reportschronic. For context, patient reportsprior back problems. For alleviating factors, patient reportsnone. For aggravating factors, patient reportsambulation,twis ting,flexing back,extending back,pushing,pulling,r eaching,straining,sitt ing,standing, andexercise. For previous injury, patient reportsprevious surgery/procedure date: ___. Have tried tylenol, hydrocodone, alcoholhas a decompression sheets in a treethat she hangs upside down none of it is helping . HELENE GARCIA PA-C [address] [place], [address], [facility] 02/29/2024 20:51:14 06/15/2024 text/html ROS as noted in the HPI walk inHad flu first of month c/o feeling run down, not eating well. Had vomiting for 2 days. feels weak and nausea. little bit of chest congestion. States she started drinking again-whiskey. BRITNEY PRITCHARD, CLERK ANALYST [address] [place], [address], [facility] 06/15/2024 16:13:19 08/09/2024 text/html Back PainReporte d by Patient walk in ptPt is having middle/lower back pain for 1 week, started hurting after planting tomatoes. PT does have chronic back pain but has been worse the last week. Jt Mcnamara, DO [address] [place], [address], [facility] 08/24/2024 23:21:13 03/10/2025 text/html walk inx1 month cough, nasal congestionShe admits to drinking whiskey all day NYA DELACRUZ, GABRIEL [address] [place], [address], [facility] 03/10/2025 18:58:02 OBGyn Episode No OBEpisode recorded.
--- NOTE | 2025-04-03 11:24 | XRR_ITS ---
PROCEDURE INFORMATION: Exam: XR Chest Exam date and time: 04/03/2025 11:24 AM Age: 64 years old Clinical indication: Angina; Additional info: Possible sepsis; Tachycardia TECHNIQUE: Imaging protocol: Radiologic exam of the chest. Views: 1 view. COMPARISON: CR XR shoulder RT min 2V* [id number] 01/24/2022 2:26 PM FINDINGS: Lungs: Mild opacity/atelectasis of the right lung base laterally. Pleural spaces: Unremarkable. No pleural effusion. No pneumothorax. Heart/Mediastinum: Moderate hiatal hernia. Bones/joints: Scoliosis convex to the right. XR/XR chest 1V portable [id number] IMPRESSION: Mild opacity at the right base.
--- NOTE | 2025-04-03 11:31 | W.ED.GENADLT ---
HPI - General Adult General: Chief complaint: General Medical Stated complaint: shoulder/back pain, shakey Time Seen by Provider: 04/03/25 11:11 Source: patient Mode of arrival: ambulatory Limitations: no limitations History of Present Illness: 64-year-old female has a history of alcohol abuse along with chronic pain she states that over the last few days she has been having increased cough she states she has pain all over her body aches all over she has been running low-grade fevers at home as well. She denies any worsening improving factors she denies any vomiting or diarrhea. Related Data Home Medications ?Medication ?Instructions ?Recorded ?Confirmed esomeprazole magnesium 20 mg 20 mg PO DAILY PRN 03/07/22 11/29/24 capsule,delayed release (Nexium) Previous Rx's ?Medication ?Instructions ?Recorded albuterol sulfate 90 mcg/actuation 2 puff inhalation Q6H PRN 06/24/23 aerosol inhaler (Ventolin HFA) shortness of breath or wheezing #8.5 grams doxycycline hyclate 100 mg tablet 100 mg PO BID 7 days #14 tabs 04/03/25 hydrocodone 5 mg-acetaminophen 325 1 tab PO Q8H PRN pain #14 tabs 04/03/25 mg tablet Allergies Allergy/AdvReac Type Severity Reaction Status Date / Time No Known Allergies Allergy Verified 11/29/24 14:48 PFSH ED PFSH: Medical History Major depressive disorder, recurrent, 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 Cigarette nicotine dependence Psychiatric care Difficulty in swallowing Alcohol use disorder, severe, dependence Esophageal stricture GERD (gastroesophageal reflux disease) Surgical History S/P appendectomy History of cholecystectomy Social History Smoking and tobacco/nicotine status: current every day tobacco/nicotine user Second hand smoke exposure: Yes Alcohol intake: former Year of sobriety/quit date alcohol: 2021 Physical Exam Const: COMMON NORMALS: patient oriented x3 HENMT: COMMON NORMALS: normocephalic and atraumatic HEAD & SCALP: normocephalic and atraumatic Eye: COMMON NORMALS: Equal, round and reactive pupils present and EOMs intact bilaterally PUPIL: Yes Equal, round and reactive pupils present Neck/C-Spine: COMMON NORMALS: full ROM and supple Chest: COMMONS NORMALS: normal inspection of the chest Resp: COMMON NORMALS: normal respiratory effort, No retractions, No use of accessory muscles and clear to auscultation bilaterally AUSCULTATION: clear to auscultation bilaterally Cardio: COMMON NORMALS: regular rhythm and No murmurs present (Cardio) RATE: tachycardic RHYTHM: regular rhythm GI: COMMON NORMALS: Normal to inspection, nondistended, normoactive bowel sounds present, Soft to palpation, non-tender and no masses PALPATION: Yes Soft to palpation Extremity: COMMON NORMALS: normal to inspection and full ROM Neuro: COMMON NORMALS: patient oriented x3, moves all extremities and no focal motor deficits Psych: COMMON NORMALS: mental status grossly normal, Normal thought process present and cooperative THOUGHT PROCESS: Normal thought process present Skin: COMMON NORMALS: no rashes or lesions noted and no wounds GENERAL SKIN EXAM: no rashes or lesions noted Course Vital Signs: Vital signs: Vital Signs Temperature 100.1 F H 04/03/25 11:14 Pulse Rate 117 H 04/03/25 13:55 Respiratory Rate 17 04/03/25 13:55 Blood Pressure 127/70 04/03/25 14:05 Pulse Oximetry 97 04/03/25 13:55 Oxygen Delivery Wa thod Room Air 04/03/25 12:37 MDM - General Adult Medical Decision Making 64-year-old female presents here with generalized bodyaches also has been having cough low-grade fevers. Differential includes pneumonia, viral syndrome. X-ray here does show pneumonia lab work here showed no significant abnormality she did receive sepsis bolus along with IV antibiotics. Patient had tachycardia here she has a long history of alcohol abuse had some tremors likely having some withdrawal symptoms. I did offer her admission for her pneumonia and likely withdrawals but she refuses she states that she has things she has to do at home and cannot stay in the hospital and refused to be admitted. I did prescribe her doxycycline she is to return if worsening she understands agrees to plan. EKG interpreted by me at 1200 shows sinus tachycardia heart rate [address] elevation QRS 89 QTc is 373 Medical Records I reviewed the patient's medical records. Lab Data I reviewed the patient's lab results. 04/03/25 11:30 04/03/25 11:30 Radiology Impressions Chest X-Ray 04/03/25 11:24 IMPRESSION: Mild opacity at the right base. Laboratory Results WBC 11.35 10^3/uL (3.29-11.43) 04/03/25 11:30 RBC 4.20 10^6/uL (3.85-5.65) 04/03/25 11:30 Hgb 14.10 g/dL (11.27-16.99) 04/03/25 11:30 Hct 41.2 % (36-47) 04/03/25 11:30 MCV 98.1 fl (85-98) H 04/03/25 11:30 MCH 33.6 pg (27-33) H 04/03/25 11:30 MCHC 34.2 g/dL (30-55) 04/03/25 11:30 RDW 12.7 % (12.1-15.1) 04/03/25 11:30 Plt Count 127 10^3/cmm (157-399) L 04/03/25 11:30 MPV 11.5 fL (7.4-10.4) H 04/03/25 11:30 Neut % (Auto) 84.3 % 04/03/25 11:30 Lymph % (Auto) 6.5 % 04/03/25 11:30 [place] % (Auto) 8.4 % 04/03/25 11:30 Eos % (Auto) 0.0 % 04/03/25 11:30 Baso % (Auto) 0.4 % 04/03/25 11:30 Neut # (Auto) 9.56 10^3/uL (1.8-7.7) H 04/03/25 11:30 Lymph # (Auto) 0.7 10^3/uL (0.8-4.8) L 04/03/25 11:30 [place] # (Auto) 1.0 10^3/uL (0.2-0.9) H 04/03/25 11:30 Eos # (Auto) 0.0 10^3/uL (0.0-0.8) 04/03/25 11:30 Baso # (Auto) 0.1 10^3/uL (0.0-0.1) 04/03/25 11:30 Nucleated RBC % (auto) 0 % 04/03/25 11:30 Nucleated RBCs # 0.0 /100WBC 04/03/25 11:30 Sodium 128 mmol/L (136-145) L 04/03/25 11:30 Potassium 3.5 mmol/L (3.5-5.1) 04/03/25 11:30 Chloride 89 mmol/L (98-107) L 04/03/25 11:30 Carbon Dioxide 26 mmol/L (22-29) 04/03/25 11:30 Anion Gap 16.5 (5-19) 04/03/25 11:30 BUN 8 mg/dL (8-23) 04/03/25 11:30 Creatinine 0.5 mg/dL (0.5-0.9) 04/03/25 11:30 GFR Calculation 124.2 mL/min (90-130) 04/03/25 11:30 Glucose 125 mg/dL (65-115) H 04/03/25 11:30 Calculated Osmolality 266 mOsm/kg (285-295) L 04/03/25 11:30 Lactic Acid 2.1 mmol/L (0.5-2.2) 04/03/25 11:30 Calcium 10.0 mg/dL (8.5-10.5) 04/03/25 11:30 Total Bilirubin 1.8 mg/dL (0.15-1.2) H 04/03/25 11:30 AST 106 U/L (0-32) H 04/03/25 11:30 ALT 36 U/L (0-33) H 04/03/25 11:30 Alkaline Phosphatase 111 U/L (35-105) H 04/03/25 11:30 Total Protein 8.5 g/dL (6.6-8.7) 04/03/25 11:30 Albumin 4.3 g/dL (3.5-5.2) 04/03/25 11:30 Globulin 4.2 g/dL (1.3-4.6) 04/03/25 11:30 Ethyl Alcohol < 10 mg/dL (0-10) 04/03/25 11:30 Influenza A (PCR) Negative (Negative) 04/03/25 12:20 Influenza Type B (PCR) Negative (Negative) 04/03/25 12:20 RSV (PCR) Negative (Negative) 04/03/25 12:20 SARS-CoV-2 (PCR) Negative (Negative) 04/03/25 12:20 All radiology interpretation(s) finalized by discharge Discharge Plan Discharge Patient Disposition: Home Clinical Impression: Pneumonia Condition: Stable Prescriptions: New hydrocodone-acetaminophen 5-325 mg tablet 1 tab PO Q8H PRN (Reason: pain) Qty: 14 0RF doxycycline hyclate 100 mg tablet 100 mg PO BID 7 Days Qty: 14 0RF No Action esomeprazole magnesium [Nexium] 20 mg capsule,delayed release(DR/EC) 20 mg PO DAILY PRN albuterol sulfate [Ventolin HFA] 90 mcg/actuation HFA aerosol inhaler 2 puff inhalation Q6H PRN (Reason: shortness of breath or wheezing) Qty: 8.5 0RF Discharge Orders: Discharge ED (Routine); Ordered 04/03/25 Ordered By: Eric Parker Referrals: Helene Moncada PA [Primary Care Provider, [facility]] - 4-7 days Discharge Diet: Advance as tolerated Discharge Activity: Resume usual activity Patient Instructions: Pneumonia (ED) Print Language: Vincentian Coding Level of Care Code ED Client Support Representative for Vale Page
[2025-04-03 11:39] LABS: Hematocrit 41.2 % (36-47); Hemoglobin 14.10 g/dL (11.27-16.99); Mean Corpuscular HGB Conc 34.2 g/dL (30-55); Mean Corpuscular Hemoglobin 33.6 pg (27-33); Mean Corpuscular Volume 98.1 fl (85-98); Nucleated Red Blood Cells % 0 %; Platelet Count 127 10^3/cmm (157-399); Red Blood Count 4.20 10^6/uL (3.85-5.65); White Blood Count 11.35 10^3/uL (3.29-11.43)
[2025-04-03] MEDS: LORazepam 2 mg/mL INJ 1 mL 1 MG IVP (11:53)
[2025-04-03] MEDS: ondansetron 2 mg/ML SDV 2 mL 4 MG IVP (11:55)
[2025-04-03 11:59] LABS: Alanine Aminotransferase 36 U/L (0-33); Albumin Level 4.3 g/dL (3.5-5.2); Alkaline Phosphatase 111 U/L (35-105); Anion Gap 16.5 (5-19); Aspartate Amino Transferase 106 U/L (0-32); Blood Urea Nitrogen 8 mg/dL (8-23); Calcium 10.0 mg/dL (8.5-10.5); Carbon Dioxide 26 mmol/L (22-29); Chloride 89 mmol/L (98-107); Globulin 4.2 g/dL (1.3-4.6); Glucose 125 mg/dL (65-115); Osmolality Calculated 266 mOsm/kg (285-295); Potassium 3.5 mmol/L (3.5-5.1); Sodium 128 mmol/L (136-145); Total Protein 8.5 g/dL (6.6-8.7)
[2025-04-03] MEDS: morphine 4 mg/mL SDV 1 mL IVP (11:59)
[2025-04-03 12:00] LABS: Lactic Sepsis W/Reflex 2.1 mmol/L (0.5-2.2)
--- NOTE | 2025-04-03 12:00 | ECG_ITS ---
[facility] Date[facility] 2025-04-03 Pat Name: Naida Dallas Department: Room: Gender: Female In Home Caregiver: : 1960 Requested By: Eric Parker Order Number: [id number] Cristina MD: Anthony Herrera M.D. Measurements Intervals [place] Rate: 121 P: 31 SC: 176 QRS: -16 QRSD: 89 T: 75 QT: 301 QTc: 429 Interpretive Statements TECHNICALLY POOR TRACING SINUS TACHYCARDIA ABNORMAL RHYTHM ECG Compared to ECG 09/21/2021 07:20:56 TRACING ARTIFACT IS NEW Electronically Signed On 04-03-2025 17:01:06 FILTER OPERATOR by Anthony Herrera M.D. [email or web address]
[2025-04-03 12:04] LABS: Alcohol Level < 10 mg/dL (0-10)
[2025-04-03 12:13] LABS: Reflex Lactate Order REFLEX LACTIC ORDERD
[2025-04-03] MEDS: cefTRIAXone 1,000 mg SDV 1000 MG IVP (12:30)
[2025-04-03 13:10] LABS: Respiratory Syncytial Virus Ce NEGATIVE (Negative); SARS-CoV-2 PCR NEGATIVE (Negative)
== END 2025-04-03 14:21 | disposition home or self-care (01) ==
PROVIDERS: Emergency Provider Emergency Medicine; PCP Physician Assistant
DX: J18.9 Pneumonia, unspecified organism (principal); Z11.52 Encounter for screening for COVID-19; Z72.0 Tobacco use
CPT/HCPCS: 36415; 71045; 80053; 80307; 83605; 85025; 87040; 87077; 87150; 87186; 87205; 87637; 93005; 96361; 96374; 96375; 99285; J0456; J0696; J1885; J2060; J2270; J2405; J7030; J7050

== ENCOUNTER 2025-04-05 15:30 | Emergency (ER) | payer OTHER, SELFPAY ==
[2025-04-05 16:06] VITALS: BP 155/96; PULSE 100; RESP 18; TEMP 37.2; O2SAT 100; BMI 18.8
--- NOTE | 2025-04-05 16:06 | XRR_ITS ---
PROCEDURE INFORMATION: Exam: XR Chest Exam date and time: 04/05/2025 4:07 PM Age: 64 years old Clinical indication: Condition or disease; Lung condition and disease; Pneumonia; Additional info: Pna dx x2 days, still not feeling good TECHNIQUE: Imaging protocol: Radiologic exam of the chest. Views: 1 view. COMPARISON: CR (CHEST, ) 04/03/2025 11:24 AM FINDINGS: Lungs: Stable minimal opacity in the lateral aspect of the right lung base likely due to atelectasis. Pleural spaces: No pleural effusion or pneumothorax noted. Heart/Mediastinum: Moderate hiatal hernia. Bones/joints: No acute osseous abnormality. Dextroconvex scoliosis of the thoracic spine. Intraperitoneal space: There is no free intraperitoneal gas. XR/XR chest 1V portable [id number] IMPRESSION: Stable minimal opacity in the lateral aspect of the right lung base likely due to atelectasis.
--- NOTE | 2025-04-05 16:14 | W.ED.WEAKNES ---
HPI - Weakness General: Chief complaint: Weakness Stated complaint: not feeling good Time Seen by Provider: 04/05/25 16:03 Source: patient Mode of arrival: ambulatory Limitations: no limitations History of Present Illness: Patient is a 64-year-old female who was seen here on 04/03 (2 days ago) who is presenting for continued weakness. She was diagnosed with pneumonia had full workup in the ED the other day clinically stable for discharge home. She has been taking her doxycycline as prescribed as well as the [place] for her reported diffuse bodyaches. She is a chronic everyday smoker has continued to smoke, at this time states her breathing feels fine but she still has continued to have bodyaches and overall just feels weak. She then clarifies that she has felt weak for months. She does not specifically feel worse when compared to the other day, at this time her vitals are stable other than slightly elevated pulse rate and mild elevation in temperature to 99. She states that she has been running fevers at home as well as chills. No vomiting or diarrhea but states that she does feel nauseous. Notably oxygenating well on room air at this time. No coughing. Complaint: generalized weakness Onset (ago): day(s) Duration: constant Location: generalized Context: other (Diagnosed with pneumonia 2 days ago) Associated symptoms: Reports chills, fever(s) and nausea; Denies chest pain, dysuria, headache(s) or vomiting Related Data Home Medications ?Medication ?Instructions ?Recorded ?Confirmed esomeprazole magnesium 20 mg 20 mg PO DAILY PRN 03/07/22 11/29/24 capsule,delayed release (Nexium) Previous Rx's ?Medication ?Instructions ?Recorded albuterol sulfate 90 mcg/actuation 2 puff inhalation Q6H PRN 06/24/23 aerosol inhaler (Ventolin HFA) shortness of breath or wheezing #8.5 grams doxycycline hyclate 100 mg tablet 100 mg PO BID 7 days #14 tabs 04/03/25 hydrocodone 5 mg-acetaminophen 325 1 tab PO Q8H PRN pain #14 tabs 04/03/25 mg tablet Allergies Allergy/AdvReac Type Severity Reaction Status Date / Time No Known Allergies Allergy Verified 11/29/24 14:48 Review of Systems General: Reports: 10 or more systems reviewed and unremarkable except in HPI and below Const: Reports: fever(s), chills, body aches, fatigue and malaise Eyes: Denies: change in vision ENMT: Denies: throat pain, ear or mastoid pain or nasal discharge Card: Denies: chest pain, palpitations, swelling of feet/ankles or lightheadedness Resp: Denies: dyspnea, productive cough or wheezing GI: Reports: nausea; Denies: abdominal pain, vomiting, diarrhea or constipation : Denies: flank pain, difficulty voiding, dysuria or urinary frequency Skin/Breast: Denies: rash Neuro: Denies: headache(s), numbness in extremities or weakness in extremities PFSH ED PFSH: Medical History Major depressive disorder, recurrent, 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 Cigarette nicotine dependence Psychiatric care Difficulty in swallowing Alcohol use disorder, severe, dependence Esophageal stricture GERD (gastroesophageal reflux disease) Surgical History S/P appendectomy History of cholecystectomy Social History Smoking and tobacco/nicotine status: current every day tobacco/nicotine user Second hand smoke exposure: Yes Alcohol intake: former Year of sobriety/quit date alcohol: 2021 Physical Exam Const: COMMON NORMALS: patient oriented x3 and no limitations GENERAL APPEARANCE: cooperative and well developed ORIENTATION/CONSCIOUSNESS: Yes awake, Yes oriented to person, Yes oriented to place and Yes oriented to time OTHER: Anxious, but nontoxic-appearing. No respiratory distress. HENMT: COMMON NORMALS: normocephalic, atraumatic and hearing grossly normal bilaterally HEAD & SCALP: normocephalic and atraumatic Eye: COMMON NORMALS: Equal, round and reactive pupils present, EOMs intact bilaterally and conjunctivae normal CONJUNCTIVA: Yes conjunctivae normal PUPIL: Yes Equal, round and reactive pupils present Neck/C-Spine: COMMON NORMALS: full ROM, supple and no JVD Resp: COMMON NORMALS: normal respiratory effort, No retractions, No use of accessory muscles and clear to auscultation bilaterally AUSCULTATION: clear to auscultation bilaterally Cardio: COMMON NORMALS: no JVD, regular rate, regular rhythm, No clicks present (Cardio), No murmurs present (Cardio) and No rub (Cardio) RATE: regular rate RHYTHM: regular rhythm GI: COMMON NORMALS: Normal to inspection, nondistended, normoactive bowel sounds present, Soft to palpation and non-tender AUSCULTATION: Yes normoactive bowel sounds PALPATION: Yes Soft to palpation RECTAL EXAM: deferred Extremity: COMMON NORMALS: normal to inspection, full ROM and capillary refill normal Neuro: COMMON NORMALS: patient oriented x3, CN's II-XII intact bilaterally, moves all extremities, no focal motor deficits and no sensory deficits noted SENSORIUM/ORIENTATION: Yes oriented to person, Yes oriented to place and Yes oriented to time Psych: COMMON NORMALS: mental status grossly normal and Normal thought process present THOUGHT PROCESS: Normal thought process present Skin: COMMON NORMALS: no rashes or lesions noted GENERAL SKIN EXAM: no rashes or lesions noted Course Vital Signs: Vital signs: Vital Signs Temperature 99 F 04/05/25 16:06 Pulse Rate 87 04/05/25 16:50 Respiratory Rate 12 04/05/25 17:02 Blood Pressure 160/85 04/05/25 16:50 Pulse Oximetry 96 04/05/25 16:50 Oxygen Delivery Me thod Room Air 04/05/25 16:50 MDM - Weakness Medical Decision Making Patient presented for continued weakness was seen a couple days ago diagnosed with pneumonia. Had full workup at that time, those results were reviewed. Labs were repeated today and there is no change and the x-ray shows improvement of the right lower lobe opacity. Vitals have been stable she has been afebrile here. She has a history of chronic alcoholism and states that she has been trying to get into chronic pain due to her history of scoliosis, I suspect that the body aches she is reporting are more chronic in nature and less so due to her recent diagnosed pneumonia. COVID flu RSV swab was negative. There is no UTI on urinalysis. Potassium was marginally low she did get replacement testing here, her magnesium was normal so this was not replaced. Overall she is stable for discharge home there is no reason for admission at this time. She will follow-up with primary care. She is to continue her previously prescribed doxycycline and [place] for pain. Lab Data 04/05/25 16:12 04/05/25 16:12 Radiology Impressions Chest X-Ray 04/05/25 16:06 IMPRESSION: Stable minimal opacity in the lateral aspect of the right lung base likely due to atelectasis. Laboratory Results WBC 7.44 10^3/uL (3.29-11.43) 04/05/25 16:12 RBC 3.70 10^6/uL (3.85-5.65) L 04/05/25 16:12 Hgb 12.50 g/dL (11.27-16.99) 04/05/25 16:12 Hct 36.0 % (36-47) 04/05/25 16:12 MCV 97.3 fl (85-98) 04/05/25 16:12 MCH 33.8 pg (27-33) H 04/05/25 16:12 MCHC 34.7 g/dL (30-55) 04/05/25 16:12 RDW 12.5 % (12.1-15.1) 04/05/25 16:12 Plt Count 109 10^3/cmm (157-399) L 04/05/25 16:12 MPV 11.9 fL (7.4-10.4) H 04/05/25 16:12 Neut % (Auto) 66.0 % 04/05/25 16:12 Lymph % (Auto) 15.5 % 04/05/25 16:12 [place] % (Auto) 16.8 % 04/05/25 16:12 Eos % (Auto) 0.5 % 04/05/25 16:12 Baso % (Auto) 0.8 % 04/05/25 16:12 Neut # (Auto) 4.91 10^3/uL (1.8-7.7) 04/05/25 16:12 Lymph # (Auto) 1.2 10^3/uL (0.8-4.8) 04/05/25 16:12 [place] # (Auto) 1.3 10^3/uL (0.2-0.9) H 04/05/25 16:12 Eos # (Auto) 0.0 10^3/uL (0.0-0.8) 04/05/25 16:12 Baso # (Auto) 0.1 10^3/uL (0.0-0.1) 04/05/25 16:12 Nucleated RBC % (auto) 0 % 04/05/25 16:12 Nucleated RBCs # 0.0 /100WBC 04/05/25 16:12 Sodium 135 mmol/L (136-145) L 04/05/25 16:12 Potassium 3.2 mmol/L (3.5-5.1) L 04/05/25 16:12 Chloride 99 mmol/L (98-107) 04/05/25 16:12 Carbon Dioxide 22 mmol/L (22-29) 04/05/25 16:12 Anion Gap 17.2 (5-19) 04/05/25 16:12 BUN 12 mg/dL (8-23) 04/05/25 16:12 Creatinine 0.5 mg/dL (0.5-0.9) 04/05/25 16:12 GFR Calculation 124.2 mL/min (90-130) 04/05/25 16:12 Glucose 90 mg/dL (65-115) 04/05/25 16:12 Calculated Osmolality 279 mOsm/kg (285-295) L 04/05/25 16:12 Lactic Acid 1.1 mmol/L (0.5-2.2) 04/05/25 16:12 Calcium 8.7 mg/dL (8.5-10.5) 04/05/25 16:12 Magnesium 1.8 mg/dL (1.7-2.3) 04/05/25 16:12 Total Bilirubin 0.5 mg/dL (0.15-1.2) 04/05/25 16:12 AST 99 U/L (0-32) H 04/05/25 16:12 ALT 29 U/L (0-33) 04/05/25 16:12 Alkaline Phosphatase 130 U/L (35-105) H 04/05/25 16:12 Total Protein 6.9 g/dL (6.6-8.7) 04/05/25 16:12 Albumin 3.5 g/dL (3.5-5.2) 04/05/25 16:12 Globulin 3.4 g/dL (1.3-4.6) 04/05/25 16:12 Urine Color Yellow (Yellow) 04/05/25 16:22 Urine Appearance Clear (CLEAR) 04/05/25 16:22 Urine pH 6.0 (5-7) 04/05/25 16:22 Ur Specific [place] 1.020 (1.005-1.030) 04/05/25 16:22 Urine Protein 1+ (Negative) A 04/05/25 16:22 Urine Glucose (UA) Negative (Normal) 04/05/25 16:22 Urine Ketones Trace (Negative) 04/05/25 16:22 Urine Blood Negative (Negative) 04/05/25 16:22 Urine Nitrate Negative (Negative) 04/05/25 16:22 Urine Bilirubin Negative (Negative) 04/05/25 16:22 Urine Urobilinogen 1.0 mg/dL (Negative) 04/05/25 16:22 Ur Leukocyte Esterase Trace (Negative) A 04/05/25 16:22 Urine RBC 0-2 /hpf (0-2) 04/05/25 16:22 Urine WBC 0-5 /hpf (0-5) 04/05/25 16:22 Ur Squamous Epith Cells 0-5 /hpf (0-5) 04/05/25 16:22 Amorphous Sediment Not Reportable 04/05/25 16:22 Urine Bacteria None seen /hpf (NONE) 04/05/25 16:22 Hyaline Casts 0.81 /lpf 04/05/25 16:22 Influenza A (PCR) Negative (Negative) 04/05/25 17:09 Influenza Type B (PCR) Negative (Negative) 04/05/25 17:09 RSV (PCR) Negative (Negative) 04/05/25 17:09 SARS-CoV-2 (PCR) Negative (Negative) 04/05/25 17:09 All radiology interpretation(s) finalized by discharge Discharge Plan Discharge Patient Disposition: Home Clinical Impression: Pneumonia Qualifiers: Pneumonia type: due to unspecified organism Laterality: right Lung location: lower lobe of lung Qualified Code(s): J18.9 - Pneumonia, unspecified organism Condition: Stable Prescriptions: No Action esomeprazole magnesium [Nexium] 20 mg capsule,delayed release(DR/EC) 20 mg PO DAILY PRN albuterol sulfate [Ventolin HFA] 90 mcg/actuation HFA aerosol inhaler 2 puff inhalation Q6H PRN (Reason: shortness of breath or wheezing) Qty: 8.5 0RF hydrocodone-acetaminophen 5-325 mg tablet 1 tab PO Q8H PRN (Reason: pain) Qty: 14 0RF doxycycline hyclate 100 mg tablet 100 mg PO BID 7 Days Qty: 14 0RF Discharge Orders: Discharge ED (Routine); Ordered 04/05/25 Ordered By: Leandro Arce Referrals: Helene Moncada PA [Primary Care Provider, [facility]] Patient Instructions: Patient Portal & [place] Instructions Activity Restrictions/Additional Instructions: Continue prescribed medications. Follow-up with your primary care provider for reevaluation. Return with any new or worsening. Print Language: Sri Lankan Coding Level of Care Code ED Supervisor Modern Languages for Vale Page
[2025-04-05 16:25] LABS: Hematocrit 36.0 % (36-47); Hemoglobin 12.50 g/dL (11.27-16.99); Mean Corpuscular HGB Conc 34.7 g/dL (30-55); Mean Corpuscular Hemoglobin 33.8 pg (27-33); Mean Corpuscular Volume 97.3 fl (85-98); Nucleated Red Blood Cells % 0 %; Platelet Count 109 10^3/cmm (157-399); Red Blood Count 3.70 10^6/uL (3.85-5.65); White Blood Count 7.44 10^3/uL (3.29-11.43)
[2025-04-05 16:35] LABS: Glucose Urine UA Negative (Normal); Nitrate Urine Negative (Negative); Specific Gravity, Urine 1.020 (1.005-1.030)
[2025-04-05 16:46] LABS: Alanine Aminotransferase 29 U/L (0-33); Albumin Level 3.5 g/dL (3.5-5.2); Alkaline Phosphatase 130 U/L (35-105); Anion Gap 17.2 (5-19); Aspartate Amino Transferase 99 U/L (0-32); Blood Urea Nitrogen 12 mg/dL (8-23); Calcium 8.7 mg/dL (8.5-10.5); Carbon Dioxide 22 mmol/L (22-29); Chloride 99 mmol/L (98-107); Globulin 3.4 g/dL (1.3-4.6); Glucose 90 mg/dL (65-115); Osmolality Calculated 279 mOsm/kg (285-295); Potassium 3.2 mmol/L (3.5-5.1); Slide Review Slide Review Perform; Sodium 135 mmol/L (136-145); Total Protein 6.9 g/dL (6.6-8.7)
--- OUTSIDE RECORDS SUMMARY | 2025-04-05 16:46 | XMS_ITS | Continuity of Care Document ---
Author Organization [facility] James Chitina [facility] Lori Bhatti, [facility] ([facility]) Address [address] [place] [address] Care Team Providers Care [employer] Operator Name Role Phone HELENE GARCIA Primary Care Provider Unavailabl e Assessment No assessment recorded. Plan of Treatment Reminders Order Date Submit Date Provider Last Modified By Organization Details Last Modified Time Details Appointments None recorded. Lab None recorded. Referral None recorded. Procedures None recorded. Surgeries None recorded. Imaging None recorded. Medication Orders Gaviscon Extra Strength 254 mg-237.5 mg/5 mL oral suspension 2024 [facility], [address], [place], [address], 16:11:35 amoxicillin 250 mg/5 mL oral suspension 2024 025 [facility], [address], [place], [address], 05:01:01 Patient TargetsNo targets recorded. Patient Instructions Encounter Date Encounter Id Patient Instructions Last Modified By Organization Details Last Modified Time 03/10/2025 [id number] Follow up with PCP for ongoing care. [email or web address] Not available 03/10/2025 18:57:52 Reason for Referral None Reported. Problems Name Problem SNOMED Code Status Onset Date Resolution Date Notes Provider Name and Address Organization Details Recorded Time Neuropathy 333122216 Active 2023 RITA WELLS [address] [place] [address], [phone], [facility] 15:59:21 Chronic low back pain 454887401 Active 2023 BRITNEY PRITCHARD, [address], [address], [facility], LCecilioLC[facility]ilioCC[facility]ilio 15:59:04 Acute low back pain 719217554 Active [address], [address], [facility], LCarleyCCecilio 17:33:04 Osteoarthritis 577404470 Active [address], [phone], [facility], LCecilioLC[facility]ilioCC[facility]ilio 17:33:06 Problem Notes None recorded. Procedures Surgical History Date Name Laterality Status Provider Name and Address Organization Details Recorded Time procedure on kidney completed [facility], [facility] 10/24/2023 15:04:45 Appendectomy completed [facility], [facility]ilio[facility] 10/24/2023 15:04:51 Partial Hysterectomy completed [facility], [facility] 10/24/2023 15:04:57 Gallbladder Surgery completed [facility], [facility]LC[facility] 10/24/2023 15:05:08 Imaging Results None recorded. [...] two times daily 10/23 completed vo KM/dh; [id number]; Recorded 06/21/19 23 2:38PM by Velvet Antony LPN (Authori eldon through Helene Garcia PA-C), Office Visit; Refill Quantity : 60; Capsule; Not Available Not Available Not Available Mobic daily 10/234 completed Recorded 06/21/19 3:05PM by Heelne Garcia PA-C, Office Visit; Refill Quantity : 30; Tablet; Not Available Not Available Not Available Vitals Date Recorded Body height Body mass index (BMI) Body weight Oxygen saturation Heart rate Body temperature Systolic And Diastolic Provider Name and Address Organization Details Last Updated DateTime 162.56 cm 19.2 kg/m2 29256.3 5 g 98 % 106 /min 98.1 [degF] 100/78 mm[Hg] Jodie Parks [facility] 15:46:54 Social History Question Answer Notes LastModified by Organizat ion Details LastModified Time Tobacco Smoking Status Current Every Day Smoker Bereniceaquiles duff [facility] 10/24/2023 15:04:31 What Was The Date [...] ICD10 Code Diagnosis IMO Codes Diagnosis Note [id number] NYA DELACRUZ APRN [facility] ([facility]) [address] [place] [phone] 03/10/2025 15:37:37 03/14/2025 12:38:55 Gastro-esophageal reflux disease with esophagitis 251115956 K21.00 6242007947 Acute supp urative otitis media without spontaneous rupture of ear drum 97763686 H66.002 [id number] Health Concerns Section Related Observation LastModified by Organization Detai ls LastModified Time None Recorded Concern Status LastModified by Organization Details LastModified Time None Recorded Payers Encounter Date Sequence Insurance Name Policy Number Policy Meyer Covered Member ID Meyer Member ID Guarantor Name 03/10/2025 1 [employer] - [employer] (PPO) [id number] Naida Dallas [id number] Naida Dallas Notes Date Note Type Note Provider Name and Address Organization Details Recorded Time 03/10/2025 text/html walk inx1 month cough, nasal congestionShe admits to drinking whiskey all day NYA DELACRUZ, [facility] [address] [place], [address], [facility] 03/10/2025 18:58:02 OBGyn Episode No OBEpisode recorded.
--- OUTSIDE RECORDS SUMMARY | 2025-04-05 16:46 | XMS_ITS | Data Portability ---
Author Organization [facility] Jacob Colunga [facility], [place], [facility] Address [address] [address] Care Team Providers Care Mainspring [employer] Cleaner Name Role Phone HELENE GARCIA Primary Care Provider Unavailabl e Assessment No assessment recorded. Plan of Treatment Reminders Order Date Submit Date Provider Last Modified By Organization Details Last Modified Time Details Appointments None recorded. Lab urinalysis , dipstick 2024 025 [facility] ([facility]), [address] [place] [address], [address], 5 16:14:23 culture, urine 2024 025 [place] [facility], [address] [place], [address], 5 01:35:04 infectious disease panel 2023 024 [place] [facility], [address], [place], [address], 4 13:25:48 SARS CoV 2 RNA, QL, nasopharyn x [address] ([facility]), [address] [place] [address], [address], 4 15:32:08 Referral None recorded. Procedures None recorded. Surgeries None recorded. Imaging XR, lumbosacra l spine, 4 or more view 2023 024 [email or web address] 2 [facility] ([facility]), [address] [facility], [place], [address], 4 10:11:15 Medication Orders Gaviscon Extra Strength 254 mg-237.5 mg/5 mL oral suspension 2024 025 [facility] 15, [address], [place], [address], 5 16:11:35 amoxicilli n 250 mg/5 mL oral suspension 2024 025 [facility] 15, [address], [place], [address], 5 05:01:01 meloxicam 15 mg tablet 2024 025 [facility] 15, [address], [place], [address], 5 16:53:32 cyclobenza freda 10 mg tablet 2024 025 [facility] 15, [address], [place], [address], 5 15:43:27 Bactrim DS 800 mg-160 mg tablet 2024 025 [facility] 15, [address], [place], [address], 5 17:04:17 meloxicam 15 mg tablet 2023 024 [facility] 15, [address], [place], [address], 5 15:43:35 gabapentin 100 mg capsule 2023 024 [facility], [address], [place], [address], 15:43:32 Augmentin 500 mg-125 mg tablet 2023 [facility], [address], [place], [address], 14:36:54 Patient TargetsNo targets recorded. Patient Instructions Encounter Date Encounter Id Patient Instructions Last Modified By Organization Details Last Modified Time 08/09/2024 [id number] back pain: care instructions [email or web address] Not available 08/09/2024 17:33:12 03/10/2025 [id number] Follow up with PCP for ongoing care. [email or web address] Not available 03/10/2025 18:57:52 Reason for Referral None Reported. Results Created Date Observation Date Name Description Value Unit Range Abnormal Flag Note LastModifiedBy Organization Detail LastModifiedTime 10/24/19 24 10/25/2023 RE SPIRA TORY TRACT INFEC TION PLUS streptococcu s pyogenes (group A strep) 0.000 ppm 19.961 - 24.689 normal Not Detec chilo Not Available [email or web address] [address], [place], [address], 10/25/2023 13:25:48 10/24/19 24 10/25/2023 RE SPIRA TORY TRACT INFEC TION PLUS streptococcu s pneumoniae 0.000 ppm 19.961 - 24.689 normal Not Detec chilo Not Available [facility] [address], [place], [address], 10/25/2023 13:25:48 10/24/19 24 10/25/2023 RE SPIRA TORY TRACT INFEC TION PLUS streptococcu s agalactiae (group B strep) 0.000 ppm 19.961 - 24.689 normal Not Detec chilo Not Available [facility] [address], [place], [address], 10/25/2023 13:25:48 10/24/19 24 10/25/2023 RE SPIRA TORY TRACT INFEC TION PLUS staphylococc us aureus 0.000 ppm 19.961 - 24.689 normal Not Detec chilo Not Available [facility] [address], [place], [address], 10/25/2023 13:25:48 10/24/19 24 10/25/2023 RE SPIRA TORY TRACT INFEC TION PLUS serratia marcescens 0.000 ppm 19.961 - 24.689 normal Not Detec chilo Not Available [facility] [address], [place], [address], 10/25/2023 13:25:48 10/24/19 24 10/25/2023 RE SPIRA TORY TRACT INFEC TION PLUS respiratory syncytial virus ([id number] 0015_po) 0.000 ppm 23.000 - 31.722 normal Not Detec chilo Not Available [facility] [address], [place], [address], 10/25/2023 13:25:48 10/24/19 24 10/25/2023 RE SPIRA TORY TRACT INFEC TION PLUS pseudomonas aeruginosa 0.000 ppm 19.961 - 24.689 normal Not Detec chilo Not Available [facility] [address], [place], [address], 10/25/2023 13:25:48 10/24/19 24 10/25/2023 RE SPIRA TORY TRACT INFEC TION PLUS proteus mirabilis, vulgaris 0.000 ppm 19.961 - 24.689 normal Not Detec chilo Not Available [facility] [address], [place], [address], 10/25/2023 13:25:48 10/24/19 24 10/25/2023 RE SPIRA TORY TRACT INFEC TION PLUS parainfluenz a virus (types 1, 2, 3, 4) 0.000 ppm 23.000 - 31.313 normal Not Detec chilo Not Available [facility] [address], [place], [address], 10/25/2023 13:25:48 10/24/19 24 10/25/2023 RE SPIRA TORY TRACT INFEC TION PLUS mycoplasma pneumoniae 0.000 ppm 19.961 - 24.689 normal Not Detec chilo Not Available [facility] [address], [place], [address], 10/25/2023 13:25:48 10/24/19 24 10/25/2023 RE SPIRA TORY TRACT INFEC TION PLUS moraxella catarrhalis 0.000 ppm 19.961 - 24.689 normal Not Detec chilo Not Available [facility] [address], [place], [address], 10/25/2023 13:25:48 10/24/19 24 10/25/2023 RE SPIRA TORY TRACT INFEC TION PLUS legionella pneumophila 0.000 ppm 19.961 - 24.689 normal Not Detec chilo Not Available [facility] [address], [place], [address], 10/25/2023 13:25:48 10/24/19 24 10/25/2023 RE SPIRA TORY TRACT INFEC TION PLUS klebsiella pneumoniae, oxytoca 0.000 ppm 19.961 - 24.689 normal Not Detec chilo Not Available [facility] [address], [place], [address], 10/25/2023 13:25:48 10/24/19 24 10/25/2023 RE SPIRA TORY TRACT INFEC TION PLUS influenza virus B 0.000 ppm 23.000 - 30.081 normal Not Detec chilo Not Available [facility] [address], [place], [address], 10/25/2023 13:25:48 10/24/19 24 10/25/2023 RE SPIRA TORY TRACT INFEC TION PLUS human metapneumovi felix 0.000 ppm 23.000 - 32.210 normal Not Detec chilo Not Available [facility] [address], [place], [address], 10/25/2023 13:25:48 10/24/19 24 10/25/2023 RE SPIRA TORY TRACT INFEC TION PLUS haemophilus influenzae 0.000 ppm 19.961 - 24.689 normal Not Detec chilo Not Available [facility] [address], [place], [address], 10/25/2023 13:25:48 10/24/19 24 10/25/2023 RE SPIRA TORY TRACT INFEC TION PLUS escherichia coli 0.000 ppm 19.961 - 24.689 normal Not Detec chilo Not Available [facility] [address], [place], [address], 10/25/2023 13:25:48 10/24/19 24 10/25/2023 RE SPIRA TORY TRACT INFEC TION PLUS enterovirus D68 0.000 ppm 23.000 - 32.117 normal Not Detec chilo Not Available [facility] [address], [place], [address], 10/25/2023 13:25:48 10/24/19 24 10/25/2023 RE SPIRA TORY TRACT INFEC TION PLUS coronaviruse s (229E, nl63, hku1, oc43) (g_betacoron avirus_1_g_c oronavirus_h ku1) 0.000 ppm 23.000 - 31.416 normal Not Detec chilo Not Available [facility] [address], [place], [address], 10/25/2023 13:25:48 10/24/19 24 10/25/2023 RE SPIRA TORY TRACT INFEC TION PLUS chlamydia pneumoniae 0.000 ppm 19.961 - 24.689 normal Not Detec chilo Not Available [facility] [address], [place], [address], 10/25/2023 13:25:48 10/24/19 24 10/25/2023 RE SPIRA TORY TRACT INFEC TION PLUS bordetella pertussis, parapertussi s, bronchisepti ca 0.000 ppm 19.961 - 24.689 normal Not Detec chilo Not Available [facility] [address], [place], [address], 10/25/2023 13:25:48 10/24/19 24 10/25/2023 RE SPIRA TORY TRACT INFEC TION PLUS acinetobacte r baumannii 0.000 ppm 19.961 - 24.689 normal Not Detec chilo Not Available [facility] [address], [place], [address], 10/25/2023 13:25:48 10/24/19 24 10/25/2023 RE SPIRA TORY TRACT INFEC TION PLUS covid-19 coronavirus (sars-cov-2) NEGATI VE normal Not Detec chilo Not Available [facility] [address], [place], [address], 10/25/2023 13:25:48 10/24/19 24 10/25/2023 RE SPIRA TORY TRACT INFEC TION PLUS rhinovirus/e nterovirus (RV_2of2_VI9 9990017_po) 19.346 ppm 23.000 - 32.985 abnormal Detec chilo Not Available [facility] [address], [place], [address], 10/25/2023 13:25:48 10/24/19 24 10/25/2023 RE SPIRA TORY TRACT INFEC TION PLUS adenovirus (adv_1of2_VI 99990001_po) 0.000 ppm 23.000 - 31.943 normal Not Detec chilo Not Available [facility] [address], [place], [address], 10/25/2023 13:25:48 10/24/19 24 10/25/2023 RE SPIRA TORY TRACT INFEC TION PLUS enterobacter aerogenes, cloacae 0.000 ppm 19.961 - 24.689 normal Not Detec chilo Not Available [facility] [address], [place], [address], 10/25/2023 13:25:48 10/24/19 24 10/24/2023 SARS CoV 2 RNA, QL, nasop haryn x COVID negati ve Not Available [facility] ([facility]) [address] [place] [address], [address], 10/24/2023 15:09:30 06/15/19 25 06/19/2024 CULTU RE, URINE , ROUTI NE culture, urine, routine SEE NOTE abnormal CULTU RE, URINE , ROUTI NE Micro Numbe r: [id number] Test Statu s: Final Speci men Sourc [...] lexin and lorac arbef . Not Available [facility] [address] [place] [address], [address], 06/19/2024 01:35:04 06/15/19 25 06/15/2024 urina lysis , dipst ick Leukocytes Trace Not Available [facility] ([facility]) [address] [place] [address], [address], 06/15/2024 16:05:42 06/15/19 25 06/15/2024 urina lysis , dipst ick Nitrite positi ve Not Available [facility] ([facility]) [address] [place] [address], [address], 06/15/2024 16:05:42 06/15/19 25 06/15/2024 urina lysis , dipst ick Urobilinogen 1 Not Available [facility] ([facility]) [address] [place], [address], 06/15/2024 16:05:42 06/15/19 25 06/15/2024 urina lysis , dipst ick Protein 30 Not Available [facility] ([facility]) [address] [place], [address], 06/15/2024 16:05:42 06/15/19 25 06/15/2024 urina lysis , dipst ick pH 8.5 Not Available [facility] ([facility]) [address] [place], [address], 06/15/2024 16:05:42 06/15/19 25 06/15/2024 urina lysis , dipst ick Blood Negati ve Not Available [facility] ([facility]) [address] [place], [address], 06/15/2024 16:05:42 06/15/19 25 06/15/2024 urina lysis , dipst ick Specific [place] 1.020 Not Available [facility] ( [facility]) [address] [place], [address], 06/15/2024 16:05:42 06/15/19 25 06/15/2024 urina lysis , dipst ick Ketone Small Not Available [facility] ([facility]) [address] [place], [address], 06/15/2024 16:05:42 06/15/19 25 06/15/2024 urina lysis , dipst ick Bilirubin Negati ve Not Available [facility] ([facility]) [address] [place], [address], 06/15/2024 16:05:42 06/15/19 25 06/15/2024 urina lysis , dipst ick Glucose Negati ve Not Available [facility] ([facility]) [address] [place], [address], 06/15/2024 16:05:42 06/15/19 25 06/15/2024 urina lysis , dipst ick Appearance Clear Not Available [facility] ([facility]) [address] [place], [address], 06/15/2024 16:05:42 06/15/19 25 06/15/2024 urina lysis , dipst ick Color Dark Yellow Not Available [facility] ([facility]) [address] [place], [address], 06/15/2024 16:05:42 02/13/20 24 02/10/2024 XR, lumbo sacra l spine , 4 or more view No observ ation record ed. [address] [place], [address], 02/17/2024 08:40:08 02/13/2002/10/2024 XR, lumbo sacra l spine , 4 or more view No observ ation record ed. [address] [place], [address], 02/17/2024 08:40:09 Result Notes None recorded. Problems Name Problem SNOMED Code Status Onset Date Resolution Date Notes Provider Name and Address Organization Details Recorded Time Neuropathy 406318923 Active 2023 RITA WELLS [address] [place], [address], [facility], [place] 15:59:21 Chronic low back pain 171540953 Active 2023 BRITNEY PRITCHARD, [employer] [address] [place], [address], [facility], [place] 15:59:04 Acute low back pain 631025308 Active 2024 [facility] [address] [place], [address], [facility], [place] 17:33:04 Osteoarthritis 288091743 Active 2024 [facility] [address] [place], [address], [facility], [place] 17:33:06 Problem Notes None recorded. Procedures Surgical History Date Name Laterality Status Provider Name and Address Organization Details Recorded [facility] 15:04:45 Appendectomy completed [facility], [place] 10/24/2023 15:04:51 Partial Hysterectomy completed [facility], [place] 10/24/2023 15:04:57 [facility] 15:05:08 Imaging Results None recorded. Procedure [...] two times daily 10/23 completed vo KM/dh; 92166; Recorded 06/21/19 23 2:38PM by Velvet Hidalgo [...] Updated DateTime 5 162.56 cm 18.1 kg/m2 68662.6 g 98 % 107 /min 97.8 [degF] 142/98 mm[Hg] Jodie Parks [facility] 5 15:57:38 Date Recorded Body height Body mass index (BMI) Body weight Body temperature Heart rate Oxygen saturation Systolic And Diastolic Provider Name and Address Organization Details Last Updated DateTime 5 162.56 cm 18.8 kg/m2 73306.6 7 g 97.9 [degF] 76 /min 99 % 144/82 mm[Hg] Shruthi Rand [facility] 5 16:57:29 Date Recorded Body height Body mass index (BMI) Body weight Oxygen saturation Heart rate Respiratory rate Body temperature Systolic And Diastolic Provider Name and Address Organization Details Last Updated DateTime 4 162.56 cm 18.1 kg/m2 10983 g 97 % 84 /min 16 /min 98.8 [degF] 166/84 mm[Hg] Berenice Russjason [facility] 4 15:03:13 Date Recorded Body height Body mass index (BMI) Body weight Oxygen saturation Heart rate Respiratory rate Body temperature Systolic And Diastolic Provider Name and Address Organization Details Last Updated DateTime 4 162.56 cm 19.2 kg/m2 57257.3 5 g 95 % 80 /min 20 /min 97 [degF] 140/80 mm[Hg] VELVET HIDALGO [facility] 4 14:31:33 Date Recorded Body height Body mass index (BMI) Body weight Oxygen saturation Heart rate Body temperature Systolic And Diastolic Provider Name and Address Organization Details Last Updated DateTime 5 162.56 cm 19.2 kg/m2 72079.3 5 g 98 % 106 /min 98.1 [degF] 100/78 mm[Hg] Jodie Parks [facility] 15:46:54 Social History Question Answer Notes LastModified by Organizat ion Details LastModified Time Tobacco Smoking Status Current Every Day Smoker Berenice duff, [facility] 10/24/2023 15:04:31 What Was The Date [...] ICD10 Code Diagnosis IMO Codes Diagnosis Note [id number] RITA WELLS [facility] ([facility]) [address] [place] [address] 10/24/2023 14:49:14 10/24/2023 15:56:39 Cough 52671881 R05.9 Acute bact erial bronchitis 339660772 J20.9 Will contact with test results once completed. Discussed otc meds for symptom management [id number] HELENE GARCIA PA-C [facility] ([facility]) [address] [place] [address] 02/10/2024 14:26:30 02/10/2024 16:58:58 Chronic low back pain 034088382 M54.50 pt with severe scoliosis of the lumbar spine on xray.due to her hx of mental health and alcohol abuse she is not a candidate for opiate tx or surgery.Sh e declines PT at this time and will try the NSAID and gabapentin Osteoarthritis 962537127 M19.90 Neuropathy 459908618 G62 .9 Harmful pa ttern of use of alcohol 14803088 F10.10 Bipolar I disorder 74819 6008 F31.9 [id number] RITA WELLS [facility] ([facility]) [address] [place] [address] 06/15/2024 15:47:48 06/15/2024 16:20:47 Fatigue 32281692 R53.83 Acute urin angela tract infection 501001683 N39.0 UA results reviewed and discussed with pt. We will start antibiotic s. Pt will increase oral fluids and can use cranberry. Return to office with no improvemen t or any problems. Go to ER with severe worsening or severe problems.W e will obtain urine culture [id number] Jt Mcnamara DO [facility] ([facility]) [address] [place] [address] 5 08/09/2024 16:43:40 08/26/2024 16:06:39 Acute low back pain 912461513 M54.50 [id number] concern for lumbar disc flair with possible nerve impingemen t and muscle spasm. will start prednisone and muscle relaxer. pt to take nsaids and tylenol otc.Consid er Xrays.Retu rn to office with no improvemen t or any problems. Go to ER with severe worsening or severe problems. Osteoarthritis 200926558 M19.90 start daily NSAIDS. [id number] NYA DELACRUZ APRN [facility] ([facility]) [address] [place] [address] 03/10/2025 15:37:37 03/14/2025 12:38:55 Gastro-esophageal reflux disease with esophagitis 091783207 K21.00 [id number] Acute supp urative otitis media without spontaneous rupture of ear drum 73453393 H66.002 [id number] Health Concerns Section Related Observation LastModified by Organization Detai ls LastModified Time None Recorded Concern Status LastModified by Organization Details LastModified Time None Recorded Advance Directives Directive None Recorded Payers Insurance Date Sequence Insurance Name Policy Number Policy Meyer Covered Member ID Meyer Member ID Guarantor Name 03/10/2025 1 [employer] [place] [id number] Naida Dallas [id number] Naida Dallas 03/10/2025 1 MED[employer] - IFB (PPO) [id number] Naida Dallas [id number] Naida Dallas Notes Date Note Type Note [...] morning for the cough. RITA WELLS [address] [place], [address], [facility] 10/24/2023 16:00:21 02/10/2024 text/html Back PainReporte [...] is helping . HELENE GARCIA PA-C [address] [place], [address], [facility] 02/29/2024 20:51:14 06/15/2024 text/html ROS as noted in the HPI walk inHad flu first of month c/o feeling run down, not eating well. Had vomiting for 2 days. feels weak and nausea. little bit of chest congestion. States she started drinking again-whiskey. BRITNEY PRITCHARD, [employer] [address] [place], [address], [facility] 06/15/2024 16:13:19 08/09/2024 text/html Back PainReporte d by Patient walk in ptPt is having middle/lower back pain for 1 week, started hurting after planting tomatoes. PT does have chronic back pain but has been worse the last week. Jt Mcnamara, DO [address] [place], [address], [facility] 08/24/2024 23:21:13 03/10/2025 text/html walk inx1 month cough, nasal congestionShe admits to drinking whiskey all day NYA DELACRUZ, GABRIEL [address] [place], [address], [facility] 03/10/2025 18:58:02 OBGyn Episode No OBEpisode recorded.
[2025-04-05 16:47] LABS: Lactic Sepsis W/Reflex 1.1 mmol/L (0.5-2.2)
[2025-04-05 16:50] VITALS: BP 160/85; PULSE 87; O2SAT 96
[2025-04-05 17:02] VITALS: RESP 12
[2025-04-05] MEDS: morphine 4 mg/mL SDV 1 mL IVP (17:02)
[2025-04-05] MEDS: ondansetron 2 mg/ML SDV 2 mL 4 MG IVP (17:02)
[2025-04-05 17:13] LABS: Magnesium 1.8 mg/dL (1.7-2.3)
[2025-04-05 18:07] LABS: Respiratory Syncytial Virus Ce NEGATIVE (Negative); SARS-CoV-2 PCR NEGATIVE (Negative)
[2025-04-05 18:24] VITALS: BP 153/92; O2SAT 97
[2025-04-05 18:29] VITALS: BP 141/83; PULSE 83; O2SAT 95
== END 2025-04-05 18:30 | disposition home or self-care (01) ==
PROVIDERS: Emergency Medicine; Emergency Provider Physician Assistant; PCP Physician Assistant
DX: J18.9 Pneumonia, unspecified organism (principal); E87.6 Hypokalemia
CPT/HCPCS: 36415; 71045; 80053; 81001; 83605; 83735; 85025; 87040; 87637; 96374; 96375; 99284; J2270; J2405; J7030; J9999